=== PATIENT | female | born 1930 | race Caucasian/White ===

== ENCOUNTER 2017-09-10 17:55 | Emergency (ER) | payer MEDICARE, OTHER ==
[2017-09-10] MEDS ORDERED: MORPHINE SULFATE 10 MG/ML INJ IV ONE (18:49)
--- NOTE | 2017-09-10 18:52 | ER Document Report ---
ED Medical Screen (RME) - General Chief Complaint: Possible Kidney Stone Stated Complaint: CHEST PAIN, BACK PAIN Time Seen by Provider: 09/10/17 18:40 Mode of Arrival: Wheelchair Information source: Patient, Relative Notes: 87-year-old female history kidney stones presents with complaints of left flank pain, she admits to urinary symptoms I have greeted and performed a rapid initial assessment of this patient. A comprehensive ED assessment and evaluation of the patient, analysis of test results and completion of the medical decision making process will be conducted by additional ED providers. PHYSICAL EXAMINATION: GENERAL: Well-appearing, well-nourished and in mild distress HEAD: Atraumatic, normocephalic. EYES: Pupils equal round extraocular movements intact, conjunctiva are normal. ENT: Nares patent NECK: Normal range of motion LUNGS: No respiratory distress Musculoskeletal: Normal range of motion NEUROLOGICAL: Normal speech, normal gait. PSYCH: Normal mood, normal affect. SKIN: Warm, Dry, normal turgor, no rashes or lesions noted. TRAVEL OUTSIDE OF THE [place] IN LAST 30 DAYS: No - Related Data Allergies/Adverse Reactions: propoxyphene HCl [From Darvon] Allergy (Mild, Verified 09/10/17 17:58) FELT FUNNY Past Medical History - Social History Chew tobacco use (# tins/day): No Frequency of alcohol use: None Drug Abuse: None - Past Medical History Cardiac Medical History: Reports: Hx Hypercholesterolemia, Hx Hypertension Denies: Hx Atrial Fibrillation, Hx Congestive Heart Failure, Hx Coronary Artery Disease, Hx Heart Attack, Hx Peripheral Vascular Disease, Hx Heart Murmur Pulmonary Medical History: Denies: Hx Asthma, Hx Tuberculosis Neurological Medical History: Reports: Hx Cerebrovascular Accident - 2009. Denies: Hx Seizures Renal/ Medical History: Denies: Hx Peritoneal Dialysis Malignancy Medical History: Denies: Hx Leukemia GI Medical History: Reports: Hx Diverticulitis, Hx Gastroesophageal Reflux Disease, Hx Hiatal Hernia. Denies: Hx Crohn's Disease, Hx Hepatitis, Hx Irritable Bowel, Hx Liver Failure, Hx Pancreatitis, Hx Ulcer Musculoskeltal Medical History: Reports Hx Arthritis Infectious Medical History: Denies: Hx Hepatitis, Hx HIV Past Surgical History: Reports: Hx Bowel Surgery - Hemicolectomy for diverticulitis in 1979, Hx Tubal Ligation. Denies: Hx Section, Hx Cholecystectomy, Hx Colostomy, Hx Gastric Bypass Surgery, Hx Herniorrhaphy, Hx Mastectomy, Hx Open Heart Surgery, Hx Pacemaker, Hx Tonsillectomy Physical Exam - Vital signs Vitals: Temp Pulse Resp BP Pulse Ox 97.5 F 90 22 H 149/78 H 100 09/10/17 18:22 09/10/17 18:22 09/10/17 18:22 09/10/17 18:22 09/10/17 18:22 Course - Vital Signs Vital signs: Temp Pulse Resp BP Pulse Ox 97.5 F 90 22 H 149/78 H 100 09/10/17 18:22 09/10/17 18:22 09/10/17 18:22 09/10/17 18:22 09/10/17 18:22
[2017-09-10 19:40] LABS: APPEARANCE,URINE CLEAR; BILIRUBIN,URINE NEGATIVE (NEGATIVE); GLUCOSE, URINE NEGATIVE (NEGATIVE); KETONES,URINE NEGATIVE (NEGATIVE); LEUKOCYTE ESTERASE,URINE TRACE (NEGATIVE); NITRITE,URINE NEGATIVE (NEGATIVE); PROTEIN,URINE NEGATIVE (NEGATIVE); URINE SPECIFIC GRAVITY 1.023
[2017-09-10] MEDS ORDERED: ONDANSETRON HCL INJ/PF 4 MG/2 ML SDV IV ONE (19:44)
--- NOTE | 2017-09-10 19:47 | ER Document Report ---
ED GI/ - General Chief Complaint: Possible Kidney Stone Stated Complaint: CHEST PAIN, BACK PAIN Time Seen by Provider: 09/10/17 18:40 Mode of Arrival: Wheelchair Information source: Patient Notes: 87 years old female presents today with left flank pain particularly over the lower thoracic and upper lumbar paralumbar region, radiating to the front for nearly one day. She has a history of kidney stones, diverticulitis with partial wedge resection of the colon. Denies any fever chills or other constitutional symptoms. Her urine was dark but not having any dysuria frequency urgency. No hematuria. Denies any nausea vomiting abdominal pain diarrhea or constipation. TRAVEL OUTSIDE OF THE [place] IN LAST 30 DAYS: No - Related Data Allergies/Adverse Reactions: propoxyphene HCl [From Darvon] Allergy (Mild, Verified 09/10/17 17:58) FELT FUNNY Past Medical History - General Information source: Patient, Relative - Social History Smoking Status: Former Smoker Chew tobacco use (# tins/day): No Frequency of alcohol use: None Drug Abuse: None Family History: Reviewed & Not Pertinent Patient has suicidal ideation: No Patient has homicidal ideation: No - Past Medical History Cardiac Medical History: Reports: Hx Hypercholesterolemia, Hx Hypertension Denies: Hx Atrial Fibrillation, Hx Congestive Heart Failure, Hx Coronary Artery Disease, Hx Heart Attack, Hx Peripheral Vascular Disease, Hx Heart Murmur Pulmonary Medical History: Denies: Hx Asthma, Hx Tuberculosis Neurological Medical History: Reports: Hx Cerebrovascular Accident - 2008. Denies: Hx Seizures Renal/ Medical History: Denies: Hx Peritoneal Dialysis Malignancy Medical History: Denies: Hx Leukemia GI Medical History: Reports: Hx Diverticulitis, Hx Gastroesophageal Reflux Disease, Hx Hiatal Hernia. Denies: Hx Crohn's Disease, Hx Hepatitis, Hx Irritable Bowel, Hx Liver Failure, Hx Pancreatitis, Hx Ulcer Musculoskeltal Medical History: Reports Hx Arthritis Infectious Medical History: Denies: Hx Hepatitis, Hx HIV Past Surgical History: Reports: Hx Bowel Surgery - Hemicolectomy for diverticulitis in 1979, Hx Tubal Ligation. Denies: Hx Section, Hx Cholecystectomy, Hx Colostomy, Hx Gastric Bypass Surgery, Hx Herniorrhaphy, Hx Mastectomy, Hx Open Heart Surgery, Hx Pacemaker, Hx Tonsillectomy - Immunizations Hx Pneumococcal Vaccination: 09/17/08 Review of Systems - Review of Systems Notes: REVIEW OF SYSTEMS: CONSTITUTIONAL : Denies fever, chills, or sweats. Denies recent illness. EENT: Denies eye, ear, throat, or mouth pain or symptoms. Denies nasal or sinus congestion or discharge. Denies throat, tongue, or mouth swelling or difficulty swallowing. CARDIOVASCULAR: Denies chest pain. Denies palpitations or racing or irregular heart beat. Denies ankle edema. RESPIRATORY: Denies cough, cold, or chest congestion. Denies shortness of breath, difficulty breathing, or wheezing. GASTROINTESTINAL: Denies abdominal pain or distention. Denies nausea, vomiting , or diarrhea. Denies blood in vomitus, stools, or per rectum. Denies black, tarry stools. Denies constipation. GENITOURINARY: Denies difficulty urinating, painful urination, burning, frequency, blood in urine, or discharge. FEMALE GENITOURINARY: Denies vaginal bleeding, heavy or abnormal periods, irregular periods. Denies vaginal discharge or odor. MUSCULOSKELETAL: SKIN: Denies rash, lesions or sores. HEMATOLOGIC : Denies easy bruising or bleeding. LYMPHATIC: Denies swollen, enlarged glands. NEUROLOGICAL: Denies confusion or altered mental status. Denies passing out or loss of consciousness. Denies dizziness or lightheadedness. Denies headache. Denies weakness or paralysis or loss of use of either side. Denies problems with gait or speech. Denies sensory loss, numbness, or tingling. Denies seizures. PSYCHIATRIC: Denies anxiety or stress. Denies depression, suicidal ideation, or homicidal ideation. ALL OTHER SYSTEMS REVIEWED AND NEGATIVE. PHYSICAL EXAMINATION: GENERAL: Elderly female with kyphoscoliosis HEAD: Atraumatic, normocephalic. EYES: Pupils equal round and reactive to light, extraocular movements intact, conjunctiva are normal. ENT: Nares patent, oropharynx clear without exudates. Moist mucous membranes. NECK: Normal range of motion, supple without lymphadenopathy LUNGS: Breath sounds clear to auscultation bilaterally and equal. No wheezes rales or rhonchi. HEART: Regular rate and rhythm without murmurs ABDOMEN: Soft, nontender, nondistended abdomen. No guarding, no rebound. No masses appreciated. Female : deferred Musculoskeletal: Sharp tenderness over the paraspinal muscles of the lower T12 and L1-3 region was noted NEUROLOGICAL: Cranial nerves grossly intact. Normal speech, normal gait. Normal sensory, motor exams PSYCH: Normal mood, normal affect. SKIN: Warm, Dry, normal turgor, no rashes or lesions noted. Dictation was performed using [employer] voice recognition software Physical Exam - Vital signs Vitals: Temp Pulse Resp BP Pulse Ox 97.5 F 90 22 H 149/78 H 100 09/10/17 18:22 09/10/17 18:22 09/10/17 18:22 09/10/17 18:22 09/10/17 18:22 Course - Re-evaluation Re-evalutation: 09/11/17 00:36 She was given medications for nausea and pain. CT report was reviewed, and all the results were discussed with patient and the family. - Vital Signs Vital signs: Temp Pulse Resp BP Pulse Ox 97.6 F 90 17 161/89 H 94 09/10/17 22:05 09/10/17 18:22 09/11/17 00:01 09/11/17 00:01 09/11/17 00:01 - Laboratory Result Diagrams: 09/10/17 20:06 09/10/17 20:06 Laboratory results interpreted by me: 09/10/17 09/10/17 09/10/17 19:00 20:06 20:06 Seg Neutrophils % 81.7 H Carbon Dioxide 31 H Glucose 117 H Creatine Kinase 144 H Urine Urobilinogen 2.0 H Ur Leukocyte Esterase TRACE H - Diagnostic Test Radiology reviewed: Reports reviewed Radiology results interpreted by me: 09/11/17 00:37 CT chest abdomen and pelvis was reviewed the radiology report - EKG Interpretation by Co EKG shows normal: Sinus rhythm - At the rate of 65 bpm left axis, left ventricular hypertrophy by voltage, otherwise no acute changes noted. Discharge - Discharge Clinical Impression: Hiatal hernia Abdominal pain Qualifiers: Abdominal location: generalized Qualified Code(s): R10.84 - Generalized abdominal pain Retained feces Qualifiers: Constipation type: slow transit constipation Qualified Code(s): K59.01 - Slow transit constipation Lower back pain Qualifiers: Chronicity: acute Back pain laterality: left Sciatica presence: unspecified whether sciatica present Qualified Code(s): M54.5 - Low back pain Disposition: HOME, SELF-CARE Instructions: Abdominal Pain ([facility]), Bulk Laxatives Prescriptions: Lactulose 20 gm PO BID #120 ml Ondansetron [Zofran Odt 4 mg Tablet] 1 - 2 tab PO Q4H PRN #15 tab.rapdis PRN Reason: For Nausea/Vomiting
[2017-09-10 20:24] LABS: ABSOLUTE LYMPHOCYTES (AUTO) 0.9 10^3/uL (0.5-4.7); ABSOLUTE MONOCYTES (AUTO) 0.2 10^3/uL (0.1-1.4); ABSOLUTE NEUT (AUTO) 5.4 10^3/uL (1.7-8.2); BASOPHILS % (AUTO) 0.6 % (0-2); EOSINOPHILS % (AUTO) 0.3 % (0-6); LYMPHOCYTES % (AUTO) 13.7 % (13-45); MEAN CORPUSCULAR HGB CONC 34.2 g/dL (32.0-36.0); MEAN CORPUSCULAR VOLUME 94 fl (80-97); MONOCYTES % (AUTO) 3.7 % (3-13); RED BLOOD COUNT 4.39 10^6/uL (3.72-5.28); RED CELL DISTRIBUTION WIDTH 12.9 % (11.5-14.0); SEGMENTED NEUTROPHILS % (AUTO) 81.7 % (42-78); WHITE BLOOD COUNT 6.6 10^3/uL (4.0-10.5)
[2017-09-10 20:45] LABS: ALANINE AMINOTRANSFERASE 26 U/L (9-52); ALBUMIN 4.5 g/dL (3.5-5.0); ALKALINE PHOSPHATASE 86 U/L (38-126); ANION GAP 10 (5-19); ASPARTATE AMINO TRANSFERASE 28 U/L (14-36); BILIRUBIN,DIRECT 0.3 mg/dL (0.0-0.4); BILIRUBIN,TOTAL 0.5 mg/dL (0.2-1.3); BLOOD UREA NITROGEN 19 mg/dL (7-20); CALCIUM 10.2 mg/dL (8.4-10.2); CARBON DIOXIDE 31 mmol/L (22-30); CHLORIDE 103 mmol/L (98-107); CREATINE KINASE 144 U/L (30-135); GLUCOSE 117 mg/dL (75-110); POTASSIUM 4.4 mmol/L (3.6-5.0); SODIUM 143.6 mmol/L (137-145); TOTAL PROTEIN 7.6 g/dL (6.3-8.2)
[2017-09-10 20:55] LABS: CREATINE KINASE MB 2.27 ng/mL (<4.55)
[2017-09-10 20:57] LABS: TROPONIN I < 0.012 ng/mL
--- NOTE | 2017-09-10 22:18 | EKG REPORT ---
SEVERITY:- ABNORMAL ECG - SINUS RHYTHM LEFT AXIS DEVIATION PROBABLE LEFT VENTRICULAR HYPERTROPHY : Confirmed by: Vincent Esposito 10-Sep-2017 22:18:06
--- NOTE | 2017-09-10 23:24 | RADIOLOGY REPORT (SQ) ---
EXAM DESCRIPTION: CTA CHEST COMPLETED DATE/TIME: 09/10/2017 11:08 pm REASON FOR STUDY: left flank pain hx stones,EVAL aorta for discection, aneurysm COMPARISON: CT 2012 TECHNIQUE: CT scan of the chest performed using helical scanning technique with dynamic intravenous contrast injection. Images reviewed with lung, soft tissue and bone windows. Reconstructed coronal and sagittal MPR images reviewed. Additional 3 dimensional post-processing performed to develop Maximal Intensity Projection images (CT P). All images stored on PACS. All CT scanners at this facility use dose modulation, iterative reconstruction, and/or weight based d osing when appropriate to reduce radiation dose to as low as reasonably achievable (ALARA). [facility]: Dose Right [facility]: CareDose [facility]: Dose Right [facility]: Teradose 4D [facility]: [employer] CONTRAST TYPE AND DOSE: contrast/concentration: Isovue 370.00 mg/ml; Total Contrast Delivered: 92.0 ml; Total Saline Delivered: 53.0 ml Contrast bolus optimized for the pulmonary arteries. Not diagnostic for the aorta. RENAL FUNCTION: GFR > 60. RADIATION DOSE: . LIMITATIONS: Motion FINDINGS: LUNGS AND PLEURA: Mild chronic interstitial changes in the lungs. No pneumothorax. AORTA AND GREAT VESSELS: No aneurysm. Contrast bolus not optimized for the aorta. HEART: No pericardial effusion. No significant coronary artery calcifications. PULMONARY ARTERIES: No emboli visualized in the main pulmonary arteries or the segmental branches. HILAR AND MEDIASTINAL STRUCTURES: There is a massive hiatal hernia with essentially intrathoracic sto mach. The stomach measures 15 x 8.5 x 12 cm. No thickening of the gastric wall and no gas within th e wall the stomach. HARDWARE: None in the chest. UPPER ABDOMEN: See separate report of the CT of the abdomen. THYROID AND OTHER SOFT TISSUES: No masses. No adenopathy. BONES: Diffuse scoliosis. 3D MIPS: Confirm above findings. OTHER: No other significant finding. IMPRESSION: There is no evidence for pulmonary emboli. Contrast bolus not optimal for the aorta. Massive gastric dilatation with fluid/food content. The stomach is intrathoracic and reaches the lev el of the aortic arch. No thickening of the gastric wall. Possible organoaxial volvulus, however no t possible to determine because of the massive dilatation. COMMENT: Quality ID # [id number]: Final reports with documentation of one or more dose reduction techniques (e.g., Automated exposure control, adjustment of the mA and/or kV according to patient size, use of iterative reconstruction technique) TECHNICAL DOCUMENTATION: JOB ID: [id number] [employer]- All Rights Reserved
--- NOTE | 2017-09-10 23:31 | RADIOLOGY REPORT (SQ) ---
EXAM DESCRIPTION: CTA ABDOMEN; CTA PELVIS COMPLETED DATE/TIME: 09/10/2017 11:08 pm REASON FOR STUDY: left flank pain hx stones,EVAL aorta for discection, aneurysm COMPARISON: None. TECHNIQUE: CT scan of the abdominal aorta extending to the iliac bifurcation performed with and with out intravenous contrast using helical scanning technique with dynamic intravenous contrast injection . Images reviewed with lung, soft tissue, and bone windows. Reconstructed coronal and sagittal MPR im ages reviewed. All images stored on PACS. Advanced 3D imaging as volume rendering, MIPS, SSD performed? yes All CT scanners at this facility use dose modulation, iterative reconstruction, and/or weight based d osing when appropriate to reduce radiation dose to as low as reasonably achievable (ALARA). [facility]: Dose Right [facility]: CareDose [facility]: Dose Right [facility]: Teradose 4D [facility]: [employer] CONTRAST TYPE AND DOSE: 92 Isovue 370- low osmolar. RENAL FUNCTION: GFR > 60. LIMITATIONS: Minimal intra-arterial contrast FINDINGS: NON-CONTRASTED IMAGING: Gallstones. POST-CONTRAST IMAGING: AORTA AND VESSELS: There is no aneurysm. Cannot evaluate for dissection. LUNG BASES: No significant findings. No nodules or infiltrates. LIVER: Normal size. No masses or dilated ducts. SPLEEN: Normal size. No focal lesions. PANCREAS: No masses. No significant calcifications. No adjacent inflammation or peripancreatic fluid collections. Pancreatic duct not dilated. GALLBLADDER: No identified stones by CT criteria. No inflammatory changes to suggest cholecystitis. ADRENAL GLANDS: Gallstones. RIGHT KIDNEY AND URETER: No mass, calculi or urinary tract obstruction. LEFT KIDNEY AND URETER: No mass, calculi or urinary tract obstruction. RETROPERITONEUM: No retroperitoneal adenopathy, hemorrhage or masses. BOWEL AND PERITONEAL CAVITY: No masses or inflammatory changes. No free fluid or peritoneal masses. Diverticulosis. APPENDIX: Not visualized. ABDOMINAL WALL: No masses. No hernias. BONY STRUCTURES: No significant or acute findings. 3-D IMAGING: Not performed. OTHER: No other significant finding. IMPRESSION: There is no evidence for aneurysm. Cannot evaluate for dissection as there is limited c ontrast in the vascular tree. Diverticulosis. Gallstones. TECHNICAL DOCUMENTATION: JOB ID: [id number] Quality ID # [id number]: Final reports with documentation of one or more dose reduction techniques (e.g., Au tomated exposure control, adjustment of the mA and/or kV according to patient size, use of iterative reconstruction technique) 2010 [employer]- All Rights Reserved
--- NOTE | 2017-09-10 23:31 | RADIOLOGY REPORT (SQ) ---
EXAM DESCRIPTION: CTA ABDOMEN; CTA PELVIS COMPLETED DATE/TIME: 09/10/2017 11:08 pm REASON FOR STUDY: left flank pain hx stones,EVAL aorta for discection, aneurysm COMPARISON: None. TECHNIQUE: CT scan of the abdominal aorta extending to the iliac bifurcation performed with and with out intravenous contrast using helical scanning technique with dynamic intravenous contrast injection . Images reviewed with lung, soft tissue, and bone windows. Reconstructed coronal and sagittal MPR im ages reviewed. All images stored on PACS. Advanced 3D imaging as volume rendering, MIPS, SSD performed? yes All CT scanners at this facility use dose modulation, iterative reconstruction, and/or weight based d osing when appropriate to reduce radiation dose to as low as reasonably achievable (ALARA). [facility]: Dose Right [facility]: CareDose [facility]: Dose Right [facility]: Teradose 4D [facility]: [employer] CONTRAST TYPE AND DOSE: 92 Isovue 370- low osmolar. RENAL FUNCTION: GFR > 60. LIMITATIONS: Minimal intra-arterial contrast FINDINGS: NON-CONTRASTED IMAGING: Gallstones. POST-CONTRAST IMAGING: AORTA AND VESSELS: There is no aneurysm. Cannot evaluate for dissection. LUNG BASES: No significant findings. No nodules or infiltrates. LIVER: Normal size. No masses or dilated ducts. SPLEEN: Normal size. No focal lesions. PANCREAS: No masses. No significant calcifications. No adjacent inflammation or peripancreatic fluid collections. Pancreatic duct not dilated. GALLBLADDER: No identified stones by CT criteria. No inflammatory changes to suggest cholecystitis. ADRENAL GLANDS: Gallstones. RIGHT KIDNEY AND URETER: No mass, calculi or urinary tract obstruction. LEFT KIDNEY AND URETER: No mass, calculi or urinary tract obstruction. RETROPERITONEUM: No retroperitoneal adenopathy, hemorrhage or masses. BOWEL AND PERITONEAL CAVITY: No masses or inflammatory changes. No free fluid or peritoneal masses. Diverticulosis. APPENDIX: Not visualized. ABDOMINAL WALL: No masses. No hernias. BONY STRUCTURES: No significant or acute findings. 3-D IMAGING: Not performed. OTHER: No other significant finding. IMPRESSION: There is no evidence for aneurysm. Cannot evaluate for dissection as there is limited c ontrast in the vascular tree. Diverticulosis. Gallstones. TECHNICAL DOCUMENTATION: JOB ID: [id number] Quality ID # [id number]: Final reports with documentation of one or more dose reduction techniques (e.g., Au tomated exposure control, adjustment of the mA and/or kV according to patient size, use of iterative reconstruction technique) 2010 [employer]- All Rights Reserved
[2017-09-10] MEDS ORDERED: PROMETHAZINE HCL INJ 50 MG/1 ML VIAL IM PRN (23:50)
[2017-09-10] MEDS ORDERED: PROMETHAZINE HCL INJ 25 MG/1 ML VIAL ONE (23:59)
[2017-09-11] MEDS ORDERED: PROMETHAZINE HCL INJ 25 MG/1 ML VIAL IM ONE
[2017-09-11] MEDS ORDERED: LACTULOSE SYRUP 20 GM/30 ML UDCUP PO ONE (00:54)
[2017-09-11 01:09] VITALS: BP 165/89
== END 2017-09-11 01:05 | disposition home or self-care (01) ==
LOC: ER 17:55
DX: K59.01 Slow transit constipation (principal); K44.9 Diaphragmatic hernia without obstruction or gangrene; R10.84 Generalized abdominal pain; M54.6 Pain in thoracic spine; M54.5 Low back pain; R39.89 Other symptoms and signs involving the genitourinary system; I51.7 Cardiomegaly; I10 Essential (primary) hypertension; Z87.442 Personal history of urinary calculi; Z87.19 Personal history of other diseases of the digestive system; Z90.49 Acquired absence of other specified parts of digestive tract; Z88.5 Allergy status to narcotic agent; Z87.891 Personal history of nicotine dependence
CPT/HCPCS: 93005; 99284; 96372; 96374; 96375; 36415; 82553; 82550; 85025; 80053; 81001; 84484; 71275; 74175; 72191; 93010; A9270; J2270; J2550; J2405

== ENCOUNTER 2018-04-10 14:14 | Inpatient (IN) | payer MEDICARE, OTHER, MEDICAID ==
--- NOTE | 2018-04-10 14:40 | ER Document Report ---
ED GI/ - General Chief Complaint: Abdominal Pain Stated Complaint: ABDOMINAL PAIN Time Seen by Provider: 04/10/18 14:40 Mode of Arrival: Ambulatory Information source: Patient Notes: Patient is an 88-year-old female who presents to the ER today for abdominal pain , nausea and vomiting that started yesterday and patient has a history of diverticulitis and thinks that that may be what this is. She states she has had a partial colectomy years ago for diverticulitis. She states her last bowel movement was either last night or this morning and normal. She denies any diarrhea. She denies any fevers or chills. She states "I think it is the cabbage I ate yesterday at [employer] aggravating my diverticulitis." TRAVEL OUTSIDE OF THE [place] IN LAST 30 DAYS: No - Related Data Allergies/Adverse Reactions: propoxyphene HCl [From Darvon] Allergy (Mild, Verified 09/10/17 17:58) FELT FUNNY Past Medical History - General Information source: Patient - Social History Smoking Status: Never Smoker Chew tobacco use (# tins/day): No Frequency of alcohol use: None Drug Abuse: None Family History: Reviewed & Not Pertinent Patient has suicidal ideation: No Patient has homicidal ideation: No - Past Medical History Cardiac Medical History: Reports: Hx Hypercholesterolemia, Hx Hypertension Denies: Hx Atrial Fibrillation, Hx Congestive Heart Failure, Hx Coronary Artery Disease, Hx Heart Attack, Hx Peripheral Vascular Disease, Hx Heart Murmur Pulmonary Medical History: Denies: Hx Asthma, Hx Tuberculosis Neurological Medical History: Reports: Hx Cerebrovascular Accident - 2009. Denies: Hx Seizures Renal/ Medical History: Denies: Hx Peritoneal Dialysis Malignancy Medical History: Denies: Hx Leukemia GI Medical History: Reports: Hx Diverticulitis, Hx Gastroesophageal Reflux Disease, Hx Hiatal Hernia. Denies: Hx Crohn's Disease, Hx Hepatitis, Hx Irritable Bowel, Hx Liver Failure, Hx Pancreatitis, Hx Ulcer Musculoskeletal Medical History: Reports Hx Arthritis Infectious Medical History: Denies: Hx Hepatitis, Hx HIV Past Surgical History: Reports: Hx Bowel Surgery - Hemicolectomy for diverticulitis in 1979, Hx Tubal Ligation. Denies: Hx Section, Hx Cholecystectomy, Hx Colostomy, Hx Gastric Bypass Surgery, Hx Herniorrhaphy, Hx Mastectomy, Hx Open Heart Surgery, Hx Pacemaker, Hx Tonsillectomy - Immunizations Hx Pneumococcal Vaccination: 09/17/08 Review of Systems - Review of Systems Constitutional: No symptoms reported EENT: No symptoms reported Cardiovascular: No symptoms reported Respiratory: No symptoms reported Gastrointestinal: See HPI Genitourinary: No symptoms reported Female Genitourinary: No symptoms reported Musculoskeletal: No symptoms reported Skin: No symptoms reported Hematologic/Lymphatic: No symptoms reported Neurological/Psychological: No symptoms reported Physical Exam - Vital signs Vitals: Temp Pulse Resp BP Pulse Ox 99.1 F 82 16 113/91 H 95 04/10/18 14:23 04/10/18 14:23 04/10/18 14:23 04/10/18 14:23 04/10/18 14:23 - Notes Notes: PHYSICAL EXAMINATION: GENERAL: Uncomfortable appearing, but in no acute distress. HEAD: Atraumatic, normocephalic. EYES: Pupils equal round and reactive to light, extraocular movements intact, sclera anicteric, conjunctiva are normal. NECK: Normal range of motion, supple without lymphadenopathy LUNGS: CTAB and equal. No wheezes rales or rhonchi. HEART: Regular rate and rhythm without murmurs ABDOMEN: Soft, epigastric tenderness only. No guarding, no rebound BACK: no vertebral tenderness, normal ROM GI/: no CVA tenderness EXTREMITIES: Normal range of motion, no pitting edema. No cyanosis. NEUROLOGICAL: Cranial nerves grossly intact. Normal sensory/motor exams. PSYCH: Normal mood, normal affect. SKIN: Warm, Dry, normal turgor, no rashes or lesions noted Course - Re-evaluation Re-evalutation: 04/10/18 17:38 Patient has a mildly elevated white blood cell count 12.2, patient has a small bowel obstruction on CAT scan today with IV contrast. Patient has no sign of diverticulitis today on CAT scan. I did suspect this clinically as patient only had epigastric tenderness. Dr. Goetz, surgeon on-call was consulted and will come evaluate as soon as he is out of the OR with a case. - Vital Signs Vital signs: Temp Pulse Resp BP Pulse Ox 99.1 F 82 16 113/91 H 95 04/10/18 14:23 04/10/18 14:23 04/10/18 14:23 04/10/18 14:23 04/10/18 14:23 - Laboratory Result Diagrams: 04/10/18 15:10 07/25/18 15:10 Laboratory results interpreted by me: 04/10/18 04/10/18 15:10 15:10 WBC 12.2 H Seg Neutrophils % 83.2 H Lymphocytes % 9.7 L Absolute Neutrophils 10.2 H Potassium 5.1 H Glucose 119 H Discharge - Discharge Clinical Impression: SBO (small bowel obstruction) Condition: Stable Disposition: ADMITTED INPATIENT Admitting Provider: Surgicalist Unit Admitted: Surgical Floor Referrals: MARA SPENCE MD [Primary Care Provider] - Follow up as needed
[2018-04-10] MEDS ORDERED: NORMAL SALINE 1000 ML 1,000 ML IV ONE (14:56)
[2018-04-10] MEDS ORDERED: METOCLOPRAMIDE HCL INJ/PF 10 MG/2 ML SDV IV ONE (14:56)
[2018-04-10] MEDS ORDERED: MORPHINE SULFATE 10 MG/ML INJ IV ONE (14:56)
[2018-04-10 15:36] LABS: ABSOLUTE BASOPHILS # (AUTO) 0.1 10^3/uL (0.0-0.2); ABSOLUTE LYMPHOCYTES (AUTO) 1.2 10^3/uL (0.5-4.7); ABSOLUTE MONOCYTES (AUTO) 0.8 10^3/uL (0.1-1.4); ABSOLUTE NEUT (AUTO) 10.2 10^3/uL (1.7-8.2); BASOPHILS % (AUTO) 0.4 % (0-2); EOSINOPHILS % (AUTO) 0.1 % (0-6); HEMATOCRIT 43.8 % (36.0-47.0); HEMOGLOBIN 14.5 g/dL (12.0-15.5); LYMPHOCYTES % (AUTO) 9.7 % (13-45); MEAN CORPUSCULAR HEMOGLOBIN 31.2 pg (27.0-33.4); MEAN CORPUSCULAR VOLUME 95 fl (80-97); MONOCYTES % (AUTO) 6.6 % (3-13); PLATELET COUNT 276 10^3/uL (150-450); RED BLOOD COUNT 4.63 10^6/uL (3.72-5.28); RED CELL DISTRIBUTION WIDTH 13.7 % (11.5-14.0); SEGMENTED NEUTROPHILS % (AUTO) 83.2 % (42-78); TOTAL CELLS COUNTED % (AUTO) 100 %; WHITE BLOOD COUNT 12.2 10^3/uL (4.0-10.5)
[2018-04-10 15:59] LABS: ALANINE AMINOTRANSFERASE 20 U/L (9-52); ALBUMIN 4.1 g/dL (3.5-5.0); ALKALINE PHOSPHATASE 75 U/L (38-126); ANION GAP 10 (5-19); ASPARTATE AMINO TRANSFERASE 28 U/L (14-36); BILIRUBIN,DIRECT 0.3 mg/dL (0.0-0.4); BILIRUBIN,TOTAL 0.9 mg/dL (0.2-1.3); BLOOD UREA NITROGEN 18 mg/dL (7-20); CALCIUM 9.8 mg/dL (8.4-10.2); CARBON DIOXIDE 30 mmol/L (22-30); CHLORIDE 100 mmol/L (98-107); GLUCOSE 119 mg/dL (75-110); POTASSIUM 5.1 mmol/L (3.6-5.0); SODIUM 139.6 mmol/L (137-145); TOTAL PROTEIN 7.2 g/dL (6.3-8.2)
--- NOTE | 2018-04-10 16:46 | RADIOLOGY REPORT (SQ) ---
EXAM DESCRIPTION: CT ABD/PELVIS WITH IV ONLY COMPLETED DATE/TIME: 04/10/2018 4:33 pm REASON FOR STUDY: epigastric and llq pain COMPARISON: None. TECHNIQUE: CT scan of the abdomen and pelvis performed using helical scanning technique with dynamic intravenous contrast injection. No oral contrast. Images reviewed with lung, soft tissue, and bone windows. Reconstructed coronal and sagittal MPR images reviewed. Delayed images for evaluation of the urinary system also acquired. All images stored on PACS. All CT scanners at this facility use dose modulation, iterative reconstruction, and/or weight based d osing when appropriate to reduce radiation dose to as low as reasonably achievable (ALARA). [facility]: Dose Right [facility]: CareDose [facility]: Dose Right [facility]: Teradose 4D [facility]: [employer] [place] [employer] [place] CONTRAST TYPE AND DOSE: contrast/concentration: Isovue 370.00 mg/ml; Total Contrast Delivered: 52.0 ml; Total Saline Delivered: 50.0 ml RENAL FUNCTION: Creatinine 0.76 RADIATION DOSE: CT Rad equipment meets quality standard of care and radiation dose reduction techniq ues were employed. CTDIvol: 4.8 - 5.4 mGy. DLP: 505 mGy-cm.. LIMITATIONS: None. FINDINGS: LOWER CHEST: Large hiatal hernia is identified with an almost complete intrathoracic stoma ch. LIVER: Normal size. No masses. No dilated ducts. SPLEEN: Normal size. No focal lesions. PANCREAS: No masses. No significant calcifications. No adjacent inflammation or peripancreatic fluid collections. Pancreatic duct not dilated. GALLBLADDER: Small calcified gallstones are identified. No inflammatory changes to suggest cholecysti tis. ADRENAL GLANDS: No significant masses or asymmetry. RIGHT KIDNEY AND URETER: No solid masses. No significant calcifications. No hydronephrosis or hyd roureter. LEFT KIDNEY AND URETER: No solid masses. No significant calcifications. No hydronephrosis or hydr oureter. AORTA AND VESSELS: No aneurysm. No dissection. Renal arteries, SMA, celiac without stenosis. RETROPERITONEUM: No retroperitoneal adenopathy, hemorrhage or masses. BOWEL AND PERITONEAL CAVITY: Multiple air and fluid distended small bowel loops are identified consis tent with a small bowel obstruction. There are more normal caliber distal small bowel loops without a definite transition point being identified. APPENDIX: Not identified PELVIS: No mass. No free fluid. Normal bladder. ABDOMINAL WALL: No masses. No hernias. BONES: There is a lumbar scoliosis convex to the right with extensive degenerative changes P OTHER: No other significant finding. IMPRESSION: Findings consistent with a small bowel obstruction without a definite transition point b eing identified. Small calcified gallstones are identified. Other findings as noted above TECHNICAL DOCUMENTATION: JOB ID: [id number] Quality ID # [id number]: Final reports with documentation of one or more dose reduction techniques (e.g., Au tomated exposure control, adjustment of the mA and/or kV according to patient size, use of iterative reconstruction technique) 2010 [employer]- All Rights Reserved Reading location - IP/workstation name: [email or web address]
[2018-04-10 17:37] LABS: APPEARANCE,URINE SLIGHTLY-CLOUDY; BILIRUBIN,URINE NEGATIVE (NEGATIVE); COLOR,URINE YELLOW; GLUCOSE, URINE NEGATIVE (NEGATIVE); KETONES,URINE NEGATIVE (NEGATIVE); LEUKOCYTE ESTERASE,URINE SMALL (NEGATIVE); NITRITE,URINE NEGATIVE (NEGATIVE); PROTEIN,URINE NEGATIVE (NEGATIVE); URINE SPECIFIC GRAVITY 1.034; UROBILINOGEN,URINE NEGATIVE mg/dL (<2.0)
[2018-04-10] MEDS ORDERED: DEXTROSE 50%-WATER 25 GM/50 ML DISP.SYRIN IV PRN ×2 (21:36)
[2018-04-10] MEDS ORDERED: ONDANSETRON HCL INJ/PF 4 MG/2 ML SDV IV PRN (21:36)
[2018-04-10] MEDS ORDERED: POTASSI CL 20 MEQ/D5-1/2NS 1L 1,000 ML IV PRN (21:36)
[2018-04-10] MEDS ORDERED: GLUCAGON,HUMAN RECOMB 1 MG INJ SUBCUT PRN (21:36)
[2018-04-10] MEDS ORDERED: DEXTROSE 40% GEL 15 GM TUBE PO PRN ×2 (21:36)
[2018-04-10] MEDS ORDERED: MORPHINE SULFATE 10 MG/ML INJ IV PRN (21:36)
[2018-04-10] MEDS ORDERED: PHENOL/SODIUM PHENOLATE 100 SPRAY/177 ML BOTTLE PO PRN (21:42)
[2018-04-10] MEDS ORDERED: PHARMACY COMMUNICATION ORDER MC NR (21:45)
--- NOTE | 2018-04-10 22:31 | PDOC H&P ---
History of Present Illness Admission Date/PCP: 04/10/18 17:48 MARA SPENCE MD Patient complains of: Nausea, vomiting, abdominal pain. History of Present Illness: HERMELINDA SALAS is an 88 year old female with a one-day history of abdominal swelling and pain. Her pain is sharp and stabbing. It does not radiate. She reports the pain is located in bilateral lower quadrants. Nothing makes her pain better. Movement and palpation make her pain worse. Patient has experienced multiple episodes of nausea and vomiting. The patient denies any fevers, chills, chest pain, shortness of breath, orthostasis, dizziness, headaches, blurry vision, fatigue, malaise, melena, hematochezia, or hematemesis. Past Medical History Cardiac Medical History: Reports: Hyperlipidema, Hypertension Denies: Atrial Fibrillation, Congestive Heart Failure, Coronary Artery Disease, Myocardial Infarction, Peripheral Vascular Disease, Heart Murmur Pulmonary Medical History: Denies: Asthma, Tuberculosis Neurological Medical History: Denies: Seizures Malignancy Medical History: Denies: Leukemia GI Medical History: Reports: Diverticulitis, Gastroesophageal Reflux Disease, Hiatal Hernia Denies: Crohn's Disease, Hepatitis Musculoskeltal Medical History: Reports: Arthritis Hematology: Reports: Anemia Denies: Hemophilia, Sickle Cell Disease Infectious Medical History: Denies: HIV Past Surgical History Past Surgical History: Reports: Tubal Ligation, Other - Cataract surgery. Partial colectomy. Denies: Amputation, Section, Cholecystectomy, Colostomy, Gastric Bypass Surgery, Herniorrhaphy, Mastectomy, Pacemaker, Tonsillectomy Social History Smoking Status: Never Smoker Frequency of Alcohol Use: None Hx Recreational Drug Use: No Hx Prescription Drug Abuse: No Family History Family History: Reviewed & Not Pertinent Parental Family History Reviewed: Yes Children Family History Reviewed: Yes Sibling(s) Family History Reviewed.: Yes Medication/Allergy Home Medications: Lovastatin [Mevacor] 20 mg PO QHS 04/10/18 Omeprazole 20 mg PO DAILY 04/10/18 Allergies/Adverse Reactions: propoxyphene HCl [From Darvon] Allergy (Mild, Verified 09/10/17 17:58) FELT FUNNY Review of Systems Constitutional: ABSENT: chills, fatigue, fever(s) Eyes: ABSENT: visual disturbances Ears: ABSENT: hearing changes Nose, Mouth, and Throat: ABSENT: sore throat Cardiovascular: ABSENT: chest pain, edema, palpitations Respiratory: ABSENT: dyspnea Gastrointestinal: PRESENT: abdominal pain, bloating, nausea, vomiting. ABSENT: hematemesis, hematochezia, melena Genitourinary: ABSENT: dysuria Musculoskeletal: ABSENT: back pain Integumentary: ABSENT: pruritus, rash Neurological: ABSENT: abnormal speech, confusion, dizziness, tremor(s), weakness Psychiatric: ABSENT: anxiety, depression Endocrine: ABSENT: cold intolerance, heat intolerance Hematologic/Lymphatic: ABSENT: easy bleeding, easy bruising Physical Exam Vital Signs: Temp Pulse Resp BP Pulse Ox 98.8 F 71 16 127/51 H 95 04/10/18 19:03 04/10/18 19:03 04/10/18 14:23 04/10/18 19:03 04/10/18 19:03 General appearance: PRESENT: no acute distress Head exam: PRESENT: atraumatic, normocephalic Eye exam: PRESENT: EOMI, PERRLA. ABSENT: scleral icterus Mouth exam: PRESENT: moist, neck supple Neck exam: ABSENT: lymphadenopathy, meningismus, tenderness, thyromegaly, tracheal deviation Respiratory exam: PRESENT: clear to auscultation nathan, unlabored. ABSENT: chest wall tenderness, wheezes Cardiovascular exam: PRESENT: RRR Pulses: PRESENT: normal radial pulses Vascular exam: PRESENT: normal capillary refill. ABSENT: pallor GI/Abdominal exam: PRESENT: distended, firm, tenderness - Mild Rectal exam: PRESENT: deferred Extremities exam: ABSENT: clubbing Neurological exam: PRESENT: alert, awake, oriented to person, oriented to place , oriented to time, oriented to situation, CN II-XII grossly intact. ABSENT: motor sensory deficit Psychiatric exam: ABSENT: agitated, anxious, depressed Focused psych exam: ABSENT: delusional Skin exam: ABSENT: cyanosis, erythema, jaundice, pallor Results Impressions: Abdomen/Pelvis CT 04/10/18 14:56 IMPRESSION: Findings consistent with a small bowel obstruction without a definite transition point being identified. Small calcified gallstones are identified. Other findings as noted above Assessment & Plan - Diagnosis (1) SBO (small bowel obstruction) Is this a current diagnosis for this admission?: Yes - Inpatient Certification Medical Necessity: Need For IV Fluids, Need for Pain Control, Need for Surgery - Plan Summary Plan Summary: This is an 88-year-old female with a history of abdominal pain, nausea, and vomiting. The patient believes she is having a "diverticulitis flareup". CT scan was performed, showing a small bowel obstruction. I have recommended hospital admission. I will insert an NG tube, and initiate conservative therapy. Hopefully her small bowel obstruction will subside in the next 48-72 hours. If the small bowel obstruction does not resolve, she may require surgical intervention. Further recommendations will be determined by the patient's clinical course.
[2018-04-10] MEDS ORDERED: DEXTROSE 5%-1/2 NORMAL SALINE 1,000 ML IV PRN (23:09)
[2018-04-11] MEDS ORDERED: PHENOL/SODIUM PHENOLATE 100 SPRAY/177 ML BOTTLE ONE (00:02)
--- NOTE | 2018-04-11 02:07 | RADIOLOGY REPORT (SQ) ---
EXAM DESCRIPTION: XR CHEST 1 VIEW COMPLETED DATE/TME: 04/11/2018 06:00 CLINICAL HISTORY: SOB, NG TUBE PLACEMENT COMPARISON: None. FINDINGS: Single frontal view of the chest. Atherosclerotic calcification aortic arch. Heart is not enlarged. No consolidation, pneumothorax, or pleural effusion. No displaced rib fractures identified. NG tube likely within and hiatal hernia. Dilated loops of small bowel partially visualized. IMPRESSION: 1. NG tube likely curled within an hiatal hernia.
[2018-04-11 07:11] LABS: ABSOLUTE EOSINOPHILS # (AUTO) 0.1 10^3/uL (0.0-0.6); ABSOLUTE MONOCYTES (AUTO) 0.8 10^3/uL (0.1-1.4); ABSOLUTE NEUT (AUTO) 8.6 10^3/uL (1.7-8.2); BASOPHILS % (AUTO) 0.2 % (0-2); EOSINOPHILS % (AUTO) 0.5 % (0-6); HEMATOCRIT 38.5 % (36.0-47.0); HEMOGLOBIN 12.9 g/dL (12.0-15.5); LYMPHOCYTES % (AUTO) 9.9 % (13-45); MEAN CORPUSCULAR HEMOGLOBIN 31.8 pg (27.0-33.4); MEAN CORPUSCULAR HGB CONC 33.5 g/dL (32.0-36.0); MEAN CORPUSCULAR VOLUME 95 fl (80-97); MONOCYTES % (AUTO) 8.1 % (3-13); PLATELET COUNT 203 10^3/uL (150-450); RED BLOOD COUNT 4.04 10^6/uL (3.72-5.28); RED CELL DISTRIBUTION WIDTH 13.3 % (11.5-14.0); SEGMENTED NEUTROPHILS % (AUTO) 81.3 % (42-78); TOTAL CELLS COUNTED % (AUTO) 100 %; WHITE BLOOD COUNT 10.5 10^3/uL (4.0-10.5)
[2018-04-11 07:23] LABS: ANION GAP 9 (5-19); BLOOD UREA NITROGEN 17 mg/dL (7-20); CALCIUM 8.7 mg/dL (8.4-10.2); CARBON DIOXIDE 25 mmol/L (22-30); CHLORIDE 104 mmol/L (98-107); GLUCOSE 109 mg/dL (75-110); POTASSIUM 4.8 mmol/L (3.6-5.0); SODIUM 138.3 mmol/L (137-145)
--- NOTE | 2018-04-11 08:25 | RADIOLOGY REPORT (SQ) ---
EXAM DESCRIPTION: KUB/ABDOMEN (SINGLE VIEW) COMPLETED DATE/TIME: 04/10/2018 10:47 pm REASON FOR STUDY: Check Placement of NG Tube COMPARISON: Sign NUMBER OF VIEWS: One view. TECHNIQUE: Supine radiographic image of the chest and abdomen acquired. LIMITATIONS: None. FINDINGS: BOWEL GAS PATTERN: Very large hiatal hernia with intrathoracic stomach. A few gas-filled loops of bowel in the abdomen. CALCIFICATIONS: No suspicious calcifications. SOFT TISSUES: No gross mass or suggestion of organomegaly. HARDWARE: Nasogastric tube with the tip in the stomach. BONES: No acute fracture. Degenerative changes in the spine. No worrisome bone lesions. OTHER: No other significant finding. IMPRESSION: VERY LARGE HIATAL HERNIA WITH INTRATHORACIC STOMACH. TIP OF THE NASOGASTRIC TUBE IS IN THE STOMACH. TECHNICAL DOCUMENTATION: JOB ID: [id number] [employer]- All Rights Reserved Reading location - IP/workstation name: [email or web address]
[2018-04-11] MEDS: ENOXAPARIN SODIUM INJ 30 MG/0.3 ML DISP.SYRIN SUBCUT SCH (09:45)
--- NOTE | 2018-04-11 13:01 | PDOC PROGRESS REPORT ---
Subjective Progress Note for:: 04/11/18 Subjective:: Feels much better. Had bowel movements this morning. Denies any abdominal pain. Patient was noted with traumatic NG tube insertion yesterday with multiple attempts. She was noted with small amounts of blood coming out through the NG tube today. Reason For Visit: SMALL BOWEL OBSTRUCTION Physical Exam Vital Signs: Temp Pulse Resp BP Pulse Ox 97.5 F 64 13 111/54 L 98 04/11/18 08:06 04/11/18 08:06 04/11/18 08:06 04/11/18 08:06 04/11/18 08:06 Intake & Output 04/10/18 04/11/18 04/12/18 06:59 06:59 06:59 Output Total 200 Balance -200 Weight 40.2 kg General appearance: PRESENT: no acute distress, cooperative Respiratory exam: PRESENT: clear to auscultation nathan Cardiovascular exam: PRESENT: RRR GI/Abdominal exam: PRESENT: other - Soft, nondistended, nontender to palpation. NG tube output appears blood-tinged. Canister has some fluid mixed with fresh blood earlier today. Results Laboratory Results: 04/11/18 06:20 04/11/18 06:20 04/11/18 04/11/18 06:20 06:20 WBC 10.5 RBC 4.04 Hgb 12.9 Hct 38.5 MCV 95 MCH 31.8 MCHC 33.5 RDW 13.3 Plt Count 203 Seg Neutrophils % 81.3 H Lymphocytes % 9.9 L Monocytes % 8.1 Eosinophils % 0.5 Basophils % 0.2 Absolute Neutrophils 8.6 H Absolute Lymphocytes 1.0 Absolute Monocytes 0.8 Absolute Eosinophils 0.1 Absolute Basophils 0.0 Sodium 138.3 Potassium 4.8 Chloride 104 Carbon Dioxide 25 Anion Gap 9 BUN 17 Creatinine 0.82 Est GFR ( Amer) > 60 Est GFR (Non-Af Amer) > 60 Glucose 109 Calcium 8.7 Impressions: Abdomen/Pelvis CT 04/10/18 14:56 IMPRESSION: Findings consistent with a small bowel obstruction without a definite transition point being identified. Small calcified gallstones are identified. Other findings as noted above KUB X-Ray 04/10/18 21:42 IMPRESSION: VERY LARGE HIATAL HERNIA WITH INTRATHORACIC STOMACH. TIP OF THE NASOGASTRIC TUBE IS IN THE STOMACH. Chest X-Ray 04/11/18 06:00 IMPRESSION: 1. NG tube likely curled within an hiatal hernia. Assessment & Plan - Diagnosis (1) SBO (small bowel obstruction) Is this a current diagnosis for this admission?: Yes Plan: Appears to have resolved. Will check x-ray prior to pulling out her NG tube since we have such a hard time getting it down. I suspect the blood per NG tube is secondary to the multiple attempts at the NG tube placement yesterday with some irritation. Will place her on proton pump inhibitor. Check laboratory studies. Will reevaluate later today if things look pretty good will DC NG tube at that point and start her on a diet.
[2018-04-11 13:24] LABS: HEMATOCRIT 39.9 % (36.0-47.0); HEMOGLOBIN 13.4 g/dL (12.0-15.5); MEAN CORPUSCULAR HEMOGLOBIN 31.7 pg (27.0-33.4); MEAN CORPUSCULAR HGB CONC 33.6 g/dL (32.0-36.0); MEAN CORPUSCULAR VOLUME 94 fl (80-97); PLATELET COUNT 217 10^3/uL (150-450); RED BLOOD COUNT 4.23 10^6/uL (3.72-5.28); RED CELL DISTRIBUTION WIDTH 13.3 % (11.5-14.0); WHITE BLOOD COUNT 7.8 10^3/uL (4.0-10.5)
--- NOTE | 2018-04-11 13:26 | RADIOLOGY REPORT (SQ) ---
EXAM DESCRIPTION: ABDOMEN 2 VIEWS COMPLETED DATE/TIME: 04/11/2018 1:12 pm REASON FOR STUDY: SBO, NG TUBE USED FOR DECOMRESSION OF HIATAL HERNIA, COMPARE TO PREVIOUS COMPARISON: 04/10/2018. NUMBER OF VIEWS: Two views. TECHNIQUE: Supine and erect/decubitus radiographic images of the abdomen acquired. LIMITATIONS: None. FINDINGS: FREE AIR: Interval decrease in size of the distended hiatal hernia. No significant dilate d bowel loops. LUNG BASES: Clear. BOWEL GAS PATTERN: Nonobstructive pattern. No dilated loops or air fluid levels. CALCIFICATIONS: No suspicious calcifications. SOFT TISSUES: No gross mass or suggestion of organomegaly. HARDWARE: Nasogastric tube in the intrathoracic stomach. BONES: No acute fracture. Degenerative changes in the spine. No worrisome bone lesions. OTHER: No other significant finding. IMPRESSION: HIATAL HERNIA WITH INTERVAL DECREASE IN THE GASEOUS DISTENTION. NO SIGNIFICANT DILATED BOWEL LOOPS. TECHNICAL DOCUMENTATION: JOB ID: [id number] [employer]- All Rights Reserved Reading location - IP/workstation name: [email or web address]
[2018-04-11 13:41] LABS: ANION GAP 9 (5-19); BLOOD UREA NITROGEN 16 mg/dL (7-20); CALCIUM 8.8 mg/dL (8.4-10.2); CARBON DIOXIDE 27 mmol/L (22-30); CHLORIDE 104 mmol/L (98-107); GLUCOSE 91 mg/dL (75-110); POTASSIUM 4.3 mmol/L (3.6-5.0); SODIUM 140.1 mmol/L (137-145)
[2018-04-11] MEDS ORDERED: HYDRALAZINE HCL INJ/PF 20 MG/1 ML SDV IV PRN (14:45)
--- NOTE | 2018-04-11 14:47 | PDOC CONSULTATION ---
Consultation Consult Date: 04/11/18 Attending physician:: QIANA BLANDON Consult reason:: Medical Managment History of Present Illness Admission Date/PCP: 04/10/18 17:48 MARA SPENCE MD Patient complains of: Nausea and vomiting with abdominal pain History of Present Illness: Per H&P by Dr. Goetz: HERMELINDA SALAS is a 88 year old female with a one-day history of abdominal swelling and pain. Her pain is sharp and stabbing. It does not radiate. She reports the pain is located in bilateral lower quadrants. Nothing makes her pain better. Movement and palpation make her pain worse. Patient has experienced multiple episodes of nausea and vomiting. The patient denies any fevers, chills, chest pain, shortness of breath, orthostasis, dizziness, headaches, blurry vision, fatigue, malaise, melena, hematochezia, or hematemesis. The patient was seen on afternoon rounds with her daughter present. HPI as above is confirmed. The patient denies abdominal pain at present. She currently has an NG tube to suction; draining dark brown/bloody fluid. She denies nausea at this time. She does report that she has had 2 bowel movements today and is passing gas; overall, she feels improved from yesterday. She denies fever, chills, chest pain, palpitations, dyspnea, orthopnea, abdominal pain, nausea and vomiting. Past Medical History Cardiac Medical History: Reports: Hyperlipidema, Hypertension Denies: Atrial Fibrillation, Congestive Heart Failure, Coronary Artery Disease, Myocardial Infarction, Peripheral Vascular Disease, Heart Murmur Pulmonary Medical History: Denies: Asthma, Chronic Obstructive Pulmonary Disease (COPD), Tuberculosis Neurological Medical History: Reports: Ischemic CVA Denies: Seizures Endocrine Medical History: Reports: None Renal/ Medical History: Reports: None Malignancy Medical History: Denies: Leukemia GI Medical History: Reports: Diverticulitis, Gastroesophageal Reflux Disease, Hiatal Hernia, Other - Previous SBO requiring bowel resection Denies: Crohn's Disease, Hepatitis Musculoskeltal Medical History: Reports: Arthritis Skin Medical History: Reports: None Psychiatric Medical History: Reports: None Traumatic Medical History: Reports: None Hematology: Reports: Anemia Denies: Hemophilia, Sickle Cell Disease Infectious Medical History: Denies: HIV Past Surgical History Past Surgical History: Reports: Tubal Ligation, Other - Cataract surgery. Partial colectomy. Denies: Amputation, Cardiac Catheterization, Section, Cholecystectomy, Colostomy, Gastric Bypass Surgery, Herniorrhaphy, Mastectomy, Pacemaker, Tonsillectomy Social History Information Source: Patient Smoking Status: Never Smoker Frequency of Alcohol Use: None Hx Recreational Drug Use: No Hx Prescription Drug Abuse: No - Advance Directive Resuscitation Status: Full Code Surrogate healthcare decision maker:: The patient's daughters, Iris Quiñones [phone] and Erin Harris [phone] Family History Family History: Reviewed & Not Pertinent Parental Family History Reviewed: Yes Children Family History Reviewed: Yes Sibling(s) Family History Reviewed.: Yes Medication/Allergy Home Medications: Lovastatin [Mevacor] 20 mg PO QHS 04/10/18 Omeprazole 20 mg PO DAILY 04/10/18 Allergies/Adverse Reactions: propoxyphene HCl [From Darvon] Allergy (Mild, Verified 09/10/17 17:58) FELT FUNNY Review of Systems Constitutional: PRESENT: anorexia. ABSENT: chills, fever(s), headache(s), weight gain, weight loss Eyes: ABSENT: visual disturbances Ears: ABSENT: hearing changes Cardiovascular: ABSENT: chest pain, dyspnea on exertion, edema, orthropnea, palpitations Respiratory: ABSENT: cough, hemoptysis Gastrointestinal: PRESENT: abdominal pain, bloating, nausea, vomiting. ABSENT: constipation, diarrhea, hematemesis, hematochezia Genitourinary: ABSENT: dysuria, hematuria Musculoskeletal: ABSENT: joint swelling Integumentary: ABSENT: rash, wounds Neurological: ABSENT: abnormal gait, abnormal speech, confusion, dizziness, focal weakness, syncope Psychiatric: ABSENT: anxiety, depression, homidical ideation, suicidal ideation Endocrine: ABSENT: cold intolerance, heat intolerance, polydipsia, polyuria Hematologic/Lymphatic: ABSENT: easy bleeding, easy bruising Physical Exam Vital Signs: Temp Pulse Resp BP Pulse Ox 97.5 F 64 13 111/54 L 98 04/11/18 08:06 04/11/18 08:06 04/11/18 08:06 04/11/18 08:06 04/11/18 08:06 Intake & Output 04/10/18 04/11/18 04/12/18 06:59 06:59 06:59 Output Total 200 Balance -200 Weight 40.2 kg General appearance: PRESENT: no acute distress, cooperative, thin, well- developed, well-nourished Head exam: PRESENT: atraumatic, normocephalic Eye exam: PRESENT: conjunctiva pink, EOMI, PERRLA. ABSENT: scleral icterus Ear exam: PRESENT: normal external ear exam Mouth exam: PRESENT: moist, tongue midline Neck exam: ABSENT: carotid bruit, JVD, lymphadenopathy, thyromegaly Respiratory exam: PRESENT: clear to auscultation nathan, symmetrical, unlabored. ABSENT: rales, rhonchi, wheezes Cardiovascular exam: PRESENT: RRR, +S1, +S2. ABSENT: diastolic murmur, rubs, systolic murmur Pulses: PRESENT: normal dorsalis pedis pul Vascular exam: PRESENT: normal capillary refill GI/Abdominal exam: PRESENT: normal bowel sounds, soft, tenderness, other - NG tube in place; draining dark brown/bloody fluid. ABSENT: distended, guarding, mass, organolmegaly, rebound Rectal exam: PRESENT: deferred Extremities exam: PRESENT: full ROM. ABSENT: calf tenderness, clubbing, pedal edema Neurological exam: PRESENT: alert, awake, oriented to person, oriented to place , oriented to time, oriented to situation, CN II-XII grossly intact. ABSENT: motor sensory deficit Psychiatric exam: PRESENT: appropriate affect, normal mood. ABSENT: homicidal ideation, suicidal ideation Skin exam: PRESENT: dry, intact, warm. ABSENT: cyanosis, rash Results Laboratory Results: 04/11/18 13:11 04/11/18 13:11 04/11/18 04/11/18 04/11/18 06:20 06:20 13:11 WBC 10.5 7.8 RBC 4.04 4.23 Hgb 12.9 13.4 Hct 38.5 39.9 MCV 95 94 MCH 31.8 31.7 MCHC 33.5 33.6 RDW 13.3 13.3 Plt Count 203 217 Seg Neutrophils % 81.3 H Lymphocytes % 9.9 L Monocytes % 8.1 Eosinophils % 0.5 Basophils % 0.2 Absolute Neutrophils 8.6 H Absolute Lymphocytes 1.0 Absolute Monocytes 0.8 Absolute Eosinophils 0.1 Absolute Basophils 0.0 Sodium 138.3 Potassium 4.8 Chloride 104 Carbon Dioxide 25 Anion Gap 9 BUN 17 Creatinine 0.82 Est GFR ( Amer) > 60 Est GFR (Non-Af Amer) > 60 Glucose 109 Calcium 8.7 04/11/18 13:11 WBC RBC Hgb Hct MCV MCH MCHC RDW Plt Count Seg Neutrophils % Lymphocytes % Monocytes % Eosinophils % Basophils % Absolute Neutrophils Absolute Lymphocytes Absolute Monocytes Absolute Eosinophils Absolute Basophils Sodium 140.1 Potassium 4.3 Chloride 104 Carbon Dioxide 27 Anion Gap 9 BUN 16 Creatinine 0.79 Est GFR ( Amer) > 60 Est GFR (Non-Af Amer) > 60 Glucose 91 Calcium 8.8 Impressions: Abdomen/Pelvis CT 04/10/18 14:56 IMPRESSION: Findings consistent with a small bowel obstruction without a definite transition point being identified. Small calcified gallstones are identified. Other findings as noted above KUB X-Ray 04/10/18 21:42 IMPRESSION: VERY LARGE HIATAL HERNIA WITH INTRATHORACIC STOMACH. TIP OF THE NASOGASTRIC TUBE IS IN THE STOMACH. Abdomen X-Ray 04/11/18 00:00 IMPRESSION: HIATAL HERNIA WITH INTERVAL DECREASE IN THE GASEOUS DISTENTION. NO SIGNIFICANT DILATED BOWEL LOOPS. Chest X-Ray 04/11/18 06:00 IMPRESSION: 1. NG tube likely curled within an hiatal hernia. Assessment & Plan - Diagnosis (1) SBO (small bowel obstruction) Is this a current diagnosis for this admission?: Yes Plan: The patient was admitted with a small bowel obstruction. She now has an NG tube placed to low wall suction; draining dark brown/bloody fluid. She reports resolution of her abdominal pain, nausea and vomiting. Per patient and nursing, she has had 2 bowel movements today and is passing gas. Surgical team is primary; plan per their expertise. With regard to cardiac clearance for possible surgical intervention; we will obtain an EKG. Otherwise, the patient reports that she is capable of walking 1/2 mile prior to becoming fatigued as well as up a flight of stairs without difficulty. She denies history of chest pain, CA, CAD, CHF. Cardiac risk factors would include age, hypertension, and hyperlipidemia. She has a reasonable cardiac risk and no immediately reversible cardiac risk factors. (2) Hypertension Is this a current diagnosis for this admission?: No Plan: The patient is not on antihypertensives at home; NORMOtensive at present. IV hydralazine as needed for blood pressure control. Would recommend advancing to a cardiac diet when cleared by surgery. (3) Hyperlipidemia Is this a current diagnosis for this admission?: No Plan: Lovastatin on hold while in n.p.o. status. (4) GERD (gastroesophageal reflux disease) Is this a current diagnosis for this admission?: Yes Plan: PPI therapy. (5) History of CVA (cerebrovascular accident) without residual deficits Is this a current diagnosis for this admission?: No - Time Time Spent: 30 to 50 Minutes Medications reviewed and adjusted accordingly: Yes Anticipated discharge: Home
[2018-04-11] MEDS ORDERED: LANSOPRAZOLE 30 MG TAB.RAP.DR PO SCH (17:00)
--- NOTE | 2018-04-11 18:15 | PDOC PROGRESS REPORT ---
Subjective Progress Note for:: 04/11/18 Subjective:: Feels well. No abdominal pain. Reason For Visit: SMALL BOWEL OBSTRUCTION Physical Exam Vital Signs: Temp Pulse Resp BP Pulse Ox 97.5 F 64 13 115/73 94 04/11/18 16:00 04/11/18 16:00 04/11/18 16:00 04/11/18 16:00 04/11/18 16:00 Intake & Output 04/10/18 04/11/18 04/12/18 06:59 06:59 06:59 Intake Total 0 Output Total 200 Balance -200 Weight 40.2 kg General appearance: PRESENT: no acute distress, cooperative Respiratory exam: PRESENT: clear to auscultation nathan Cardiovascular exam: PRESENT: RRR GI/Abdominal exam: PRESENT: other - Soft, nondistended, nontender to palpation. NG tube output is slightly blood-tinged Psychiatric exam: PRESENT: appropriate affect Results Laboratory Results: 04/11/18 13:11 04/11/18 13:11 04/11/18 04/11/18 04/11/18 06:20 06:20 13:11 WBC 10.5 7.8 RBC 4.04 4.23 Hgb 12.9 13.4 Hct 38.5 39.9 MCV 95 94 MCH 31.8 31.7 MCHC 33.5 33.6 RDW 13.3 13.3 Plt Count 203 217 Seg Neutrophils % 81.3 H Lymphocytes % 9.9 L Monocytes % 8.1 Eosinophils % 0.5 Basophils % 0.2 Absolute Neutrophils 8.6 H Absolute Lymphocytes 1.0 Absolute Monocytes 0.8 Absolute Eosinophils 0.1 Absolute Basophils 0.0 Sodium 138.3 Potassium 4.8 Chloride 104 Carbon Dioxide 25 Anion Gap 9 BUN 17 Creatinine 0.82 Est GFR ( Amer) > 60 Est GFR (Non-Af Amer) > 60 Glucose 109 Calcium 8.7 04/11/18 13:11 WBC RBC Hgb Hct MCV MCH MCHC RDW Plt Count Seg Neutrophils % Lymphocytes % Monocytes % Eosinophils % Basophils % Absolute Neutrophils Absolute Lymphocytes Absolute Monocytes Absolute Eosinophils Absolute Basophils Sodium 140.1 Potassium 4.3 Chloride 104 Carbon Dioxide 27 Anion Gap 9 BUN 16 Creatinine 0.79 Est GFR ( Amer) > 60 Est GFR (Non-Af Amer) > 60 Glucose 91 Calcium 8.8 Impressions: Abdomen/Pelvis CT 04/10/18 14:56 IMPRESSION: Findings consistent with a small bowel obstruction without a definite transition point being identified. Small calcified gallstones are identified. Other findings as noted above KUB X-Ray 04/10/18 21:42 IMPRESSION: VERY LARGE HIATAL HERNIA WITH INTRATHORACIC STOMACH. TIP OF THE NASOGASTRIC TUBE IS IN THE STOMACH. Abdomen X-Ray 04/11/18 00:00 IMPRESSION: HIATAL HERNIA WITH INTERVAL DECREASE IN THE GASEOUS DISTENTION. NO SIGNIFICANT DILATED BOWEL LOOPS. Chest X-Ray 04/11/18 06:00 IMPRESSION: 1. NG tube likely curled within an hiatal hernia. Assessment & Plan - Diagnosis (1) SBO (small bowel obstruction) Is this a current diagnosis for this admission?: Yes Plan: Appears to have resolved by exam, her having bowel movements, and abdominal x- rays. She does have a large hiatal hernia and the NG tube is in the stomach that has been herniated into the chest. I will plan to DC her NG tube place her on clear liquids. Of note her hematocrit went up slightly from this morning. There is no elevation of her BUN. All consistent with NG tube irritation of her stomach lining rather than a significant gastrointestinal bleed. However in light of her large hiatal hernia and the blood that was seen in the NG tube I do recommend a upper endoscopy. We will plan this procedure tomorrow. We will make her n.p.o. post midnight.
[2018-04-11] MEDS: PANTOPRAZOLE SODIUM 40 MG VIAL IV SCH (22:09)
--- NOTE | 2018-04-12 00:04 | EKG REPORT ---
SEVERITY:- ABNORMAL ECG - SINUS RHYTHM CONSIDER LEFT VENTRICULAR HYPERTROPHY : Confirmed by: Lanny Hdez MD 12-Apr-2018 00:03:13
[2018-04-12] MEDS ORDERED: ONDANSETRON HCL INJ/PF 4 MG/2 ML SDV ONE (10:33)
[2018-04-12] MEDS ORDERED: DIPHENHYDRAMINE HCL 50 MG/ML VIAL ONE (10:33)
[2018-04-12] MEDS ORDERED: NALOXONE HCL INJ/PF 0.4 MG/1 ML SDV ONE (10:33)
[2018-04-12] MEDS ORDERED: EPINEPHRINE INJ 1 MG/10 ML DISP.SYRIN ONE (10:34)
[2018-04-12] MEDS ORDERED: FLUMAZENIL INJ 0.5 MG/5 ML VIAL ONE (10:34)
[2018-04-12] MEDS ORDERED: GLUCAGON,HUMAN RECOMB 1 MG INJ ONE (10:34)
[2018-04-12] MEDS: PANTOPRAZOLE SODIUM 40 MG VIAL IV SCH (10:51)
[2018-04-12] MEDS: ENOXAPARIN SODIUM INJ 30 MG/0.3 ML DISP.SYRIN SUBCUT SCH (10:51)
--- NOTE | 2018-04-12 11:54 | PDOC PROGRESS REPORT ---
Subjective Progress Note for:: 04/12/18 Reason For Visit: SMALL BOWEL OBSTRUCTION Patient feels better; tolerating nasogastric tube out. On further questioning, patient has had problems with poor digestion for years. Physical Exam Vital Signs: Temp Pulse Resp BP Pulse Ox 98.7 F 68 14 137/69 H 96 04/12/18 08:07 04/12/18 08:07 04/12/18 08:07 04/12/18 08:07 04/12/18 08:07 Intake & Output 04/11/18 04/12/18 04/13/18 06:59 06:59 06:59 Intake Total 200 Output Total 200 Balance 0 Weight 40.2 kg 45 kg General appearance: PRESENT: no acute distress GI/Abdominal exam: PRESENT: other - No peritoneal signs soft no distention Results Laboratory Results: 04/11/18 13:11 04/11/18 13:11 04/11/18 04/11/18 13:11 13:11 WBC 7.8 RBC 4.23 Hgb 13.4 Hct 39.9 MCV 94 MCH 31.7 MCHC 33.6 RDW 13.3 Plt Count 217 Sodium 140.1 Potassium 4.3 Chloride 104 Carbon Dioxide 27 Anion Gap 9 BUN 16 Creatinine 0.79 Est GFR ( Amer) > 60 Est GFR (Non-Af Amer) > 60 Glucose 91 Calcium 8.8 Impressions: Abdomen/Pelvis CT 04/10/18 14:56 IMPRESSION: Findings consistent with a small bowel obstruction without a definite transition point being identified. Small calcified gallstones are identified. Other findings as noted above KUB X-Ray 04/10/18 21:42 IMPRESSION: VERY LARGE HIATAL HERNIA WITH INTRATHORACIC STOMACH. TIP OF THE NASOGASTRIC TUBE IS IN THE STOMACH. Abdomen X-Ray 04/11/18 00:00 IMPRESSION: HIATAL HERNIA WITH INTERVAL DECREASE IN THE GASEOUS DISTENTION. NO SIGNIFICANT DILATED BOWEL LOOPS. Chest X-Ray 04/11/18 06:00 IMPRESSION: 1. NG tube likely curled within an hiatal hernia. Assessment & Plan - Diagnosis (1) SBO (small bowel obstruction) Is this a current diagnosis for this admission?: Yes Plan: Resolved, tolerating nasogastric tube out; tolerating clear liquids last p.m. (2) Hiatal hernia Is this a current diagnosis for this admission?: Yes Plan: Large, chronic, dramatically symptomatic with the NG tube output Recommendations: 1. We will perform EGD, biopsies as indicated in endoscopy under conscious sedation. 2. If patient continues to do well advance diet discharge home
[2018-04-12] MEDS: MIDAZOLAM 2 MG/2 ML INJ ONE ×2 (12:24→12:26)
[2018-04-12] MEDS: FENTANYL CITRATE INJ/PF 100 MCG/2 ML AMPUL ONE ×2 (12:28→12:30)
--- NOTE | 2018-04-12 13:00 | Operative Report ---
Operative Report DATE OF SURGERY: 04/12/18 PREOPERATIVE DIAGNOSIS: 1. Large hiatal hernia. 2. Resolved small bowel obstruction. 3. Heme positive NG output POSTOPERATIVE DIAGNOSIS: Same with mild to moderate gastritis OPERATION: Esophagogastroduodenoscopy SURGEON: ROSARIO MEI ANESTHESIA: Moderate Sedation TISSUE REMOVED OR ALTERED: None COMPLICATIONS: None ESTIMATED BLOOD LOSS: Scant INTRAOPERATIVE FINDINGS: See below PROCEDURE: The patient was taken from the floor to the endoscopy suite where monitoring devices were attached oral mouthpiece inserted and conscious sedation initiated. Surgical plan surgical timeout were conducted. The flexible upper endoscope was advanced to the patient's oropharynx down the esophagus. Approximately 35 cm from the incisor we got into the stomach proper. The stomach was dilated. There were streaks of gastric inflammation. Photos taken. Some small areas of early erosion identified. No evidence of tumor stricture bleeding or jasmina ulcer. With some manipulation, we are able to advance the upper endoscope through the pylorus into the first and second portions of the duodenum. Was bile present no other pathology seen Scope was withdrawn back into the stomach. Scope was retroflexed several times and no evidence of ulcer seen along the cardia. Scope was straightened and brought back to the esophagus. The esophagus was grossly normal. Scope was withdrawn the patient's oropharynx. She tolerated procedure well. Recommendations: 1. Advance diet 2. Anticipate discharge home later today on antacids.
[2018-04-12 14:20] VITALS: BP 135/68
--- NOTE | 2018-04-19 12:25 | DISCHARGE SUMMARY E ---
Discharge Summary NAME: HERMELINDA SALAS : 1930 AGE: 88Y ADMITTED: 04/10/2018 DISCHARGED: 04/12/2018 REASON FOR ADMISSION: Abdominal pain. SUMMARY OF HOSPITALIZATION: The patient was admitted to the surgical service, kept NPO on IV fluids, and had a nasogastric tube placed. CT scan of the abdomen and pelvis revealed a large hiatal hernia, and findings consistent with a partial small bowel obstruction. Overnight, the patient improved clinically. She had decreased NG tube output and at the 2nd hospital day, the nasogastric tube was removed. The patient did have an episode of heme-positive nasogastric drainage. She therefore underwent upper endoscopy by Dr. Simmons on 04/12/2018, and she was found to have a large hiatal hernia and moderate gastritis. Following that procedure, she was started on a diet, advanced and tolerated well. By the 3rd hospital day, she was ready for discharge home. DISPOSITION: The patient will be discharged to home in the care of her family. Follow up with [facility] on an as needed basis. She will resume her preoperative medications, diet, and activity. DICTATING PHYSICIAN: ROSARIO SIMMONS M.D. [id number] PHY#: [id number] ID: [id number] JOB#: [id number] ACCT: [id number] cc:MARA SPENCE M.D. Jacqueline GONCALVES M.D. >
== END 2018-04-12 18:21 | disposition home or self-care (01) | DRG 390 ==
LOC: ER 14:14 → EH 17:48 → 4S 19:53
PROVIDERS: ADMIT Surgery; ATTEND Surgery
PROC: 0D9670Z Drainage of Stomach with Drainage Device, Via Natural or Artificial Opening (ICD-10-PCS; principal; 2018-04-10)
PROC: 0DJ08ZZ Inspection of Upper Intestinal Tract, Via Natural or Artificial Opening Endoscopic (ICD-10-PCS; 2018-04-12)
DX: K56.609 Unspecified intestinal obstruction, unspecified as to partial versus complete obstruction (principal); E78.00 Pure hypercholesterolemia, unspecified; I10 Essential (primary) hypertension; Z86.73 Personal history of transient ischemic attack (TIA), and cerebral infarction without residual deficits; K21.9 Gastro-esophageal reflux disease without esophagitis; K44.9 Diaphragmatic hernia without obstruction or gangrene; M19.90 Unspecified osteoarthritis, unspecified site; D64.9 Anemia, unspecified; K80.80 Other cholelithiasis without obstruction; Z90.49 Acquired absence of other specified parts of digestive tract; Z88.6 Allergy status to analgesic agent; Z98.49 Cataract extraction status, unspecified eye; Z79.899 Other long term (current) drug therapy; K29.70 Gastritis, unspecified, without bleeding
CPT/HCPCS: 36415; 43235; 71045; 74018; 74019; 74177; 80048; 80053; 81001; 85025; 85027; 93005; 93010; 96361; 96374; 96375; 99285; J0171; J1200; J1610; J1650; J2250; J2270; J2310; J2405; J2765; J3010; J3490; J7030; S0164

== ENCOUNTER 2018-05-20 01:27 | Inpatient (IN) | payer MEDICARE, OTHER, MEDICAID ==
[2018-05-20] MEDS ORDERED: MAG HYDROX/AL HYDROX/SIMETH SUSP 30 ML UDCUP PO ONE (01:52)
[2018-05-20] MEDS ORDERED: METOCLOPRAMIDE HCL ORAL SOLN 10 MG/10 ML UDCUP PO ONE (01:52)
[2018-05-20] MEDS ORDERED: LIDOCAINE 2% VISCOUS SOLN 20 ML UDCUP PO ONE (01:52)
[2018-05-20] MEDS ORDERED: MORPHINE SULFATE 10 MG/ML INJ IV ONE ×3 (01:53→04:56)
--- NOTE | 2018-05-20 01:53 | ER Document Report ---
ED General - General Chief Complaint: Abdominal Pain Stated Complaint: LOWER BACK PAIN Time Seen by Provider: 05/20/18 01:48 Notes: Patient is a 88-year-old female who presents with complaint of body pain and vomiting that started this afternoon. Patient says she has had similar pains in the past with gastritis and also had a bowel obstruction recently which developed similar pains however this time she says the pain is more severe and ffeels like a more severe version of gastritis. No blood in her emesis. No black or tarry stools. No fevers. She does have history of hiatal hernia with gastritis. Says the pain is in her stomach and radiates up into her chest. TRAVEL OUTSIDE OF THE [place] IN LAST 30 DAYS: No - Related Data Allergies/Adverse Reactions: propoxyphene HCl [From Darvon] Allergy (Mild, Verified 09/10/17 17:58) FELT FUNNY Past Medical History - Social History Smoking Status: Never Smoker Frequency of alcohol use: None Drug Abuse: None Family History: Reviewed & Not Pertinent Patient has suicidal ideation: No Patient has homicidal ideation: No - Past Medical History Cardiac Medical History: Reports: Hx Hypercholesterolemia, Hx Hypertension Denies: Hx Atrial Fibrillation, Hx Congestive Heart Failure, Hx Coronary Artery Disease, Hx Heart Attack, Hx Peripheral Vascular Disease, Hx Heart Murmur Pulmonary Medical History: Denies: Hx Asthma, Hx COPD, Hx Tuberculosis Neurological Medical History: Reports: Hx Cerebrovascular Accident - 2008. Denies: Hx Seizures Renal/ Medical History: Denies: Hx Peritoneal Dialysis Malignancy Medical History: Denies: Hx Leukemia GI Medical History: Reports: Hx Diverticulitis, Hx Gastroesophageal Reflux Disease, Hx Hiatal Hernia. Denies: Hx Crohn's Disease, Hx Hepatitis, Hx Irritable Bowel, Hx Liver Failure, Hx Pancreatitis, Hx Ulcer Musculoskeletal Medical History: Reports Hx Arthritis Infectious Medical History: Denies: Hx Hepatitis, Hx HIV Past Surgical History: Reports: Hx Bowel Surgery - Hemicolectomy for diverticulitis in 1979, Hx Tubal Ligation, Other - Cataract surgery. Partial colectomy.. Denies: Hx Cardiac Catheterization, Hx Section, Hx Cholecystectomy, Hx Colostomy, Hx Gastric Bypass Surgery, Hx Herniorrhaphy, Hx Hysterectomy, Hx Mastectomy, Hx Open Heart Surgery, Hx Pacemaker, Hx Tonsillectomy - Immunizations Hx Pneumococcal Vaccination: 01/01/09 Review of Systems - Review of Systems Notes: My Normal Review Basic REVIEW OF SYSTEMS: CONSTITUTIONAL : Denies fever, chills, or sweats. Denies recent illness. EENT: Denies eye, ear, throat, or mouth pain or symptoms. Denies nasal or sinus congestion. CARDIOVASCULAR: Pressure into chest. RESPIRATORY: Denies cough, cold, or chest congestion. Denies shortness of breath, difficulty breathing, or wheezing. GASTROINTESTINAL: Some upper abdominal pain. Some nausea and vomiting. MUSCULOSKELETAL: Denies neck or back pain or joint pain or swelling. SKIN: Denies rash or skin lesions. NEUROLOGICAL: Denies altered mental status or loss of consciousness. Denies headache. Denies weakness or paralysis or loss of use of either side. Denies problems with gait or speech. Denies sensory or motor loss. ALL OTHER SYSTEMS REVIEWED AND NEGATIVE. Physical Exam - Vital signs Vitals: Temp Pulse Resp BP Pulse Ox 97.5 F 67 16 122/82 98 05/20/18 01:30 05/20/18 01:30 05/20/18 01:30 05/20/18 01:30 05/20/18 01:30 - Notes Notes: General Appearance: Well nourished, alert, cooperative, no acute distress, moderate obvious discomfort. Vitals: reviewed, See vital signs table. Head: no swelling or tenderness to the head Eyes: PERRL, EOMI, Conjuctiva clear Mouth: No decreasd moisture Throat: No tonsillar inflammation, No airway obstruction, No lymphadenopathy Neck: Supple, no neck tenderness Lungs: No wheezing, No rales, No rhonci, No accessory muscle use, good air exchange bilaterally. Heart: Normal rate, Regular rythm, No murmur, no rub Abdomen: Normal BS, soft, No rigidity, patient has limited pain is reproducible to palpation of the upper abdomen. Abdomen is not distended. no guarding, no rebound, no abdominal masses, no organomegaly Extremities: strength 5/5 in all extremities, good pulses in all extremities, no edema. Skin: warm, dry, appropriate color, no rash Neuro: speech clear, oriented x 3, normal affect, responds appropriately to questions. Course - Re-evaluation Re-evalutation: 05/20/18 04:52 Patient continues to have current spitting up. She was able to hold on the Carafate however she continues says she feels very nauseous and continues a splint in emesis bag. She continues to look somewhat uncomfortable. Do not suspect obstruction of the patient's acute abdominal series shows no evidence of obstruction, her abdomen is not distended, and most depression pain is into her lower chest where her hiatal hernias. I think this is all result of severe gastritis with hiatal hernia. Her daughter says that she is not compliant with her medications and that she does have flareups some to this however this 1 is more intense than typical. I did talk to patient length. At this time will admit the patient due to her continued discomfort and continue waves of nausea. I spoke with Dr. Herrera, patient's primary care physician, who agrees to admit the patient. Dictation of this chart was performed using voice recognition software; therefore, there may be some unintended grammatical errors. - Vital Signs Vital signs: Temp Pulse Resp BP Pulse Ox 97.5 F 67 16 122/82 98 05/20/18 01:30 05/20/18 01:30 05/20/18 01:30 05/20/18 01:30 05/20/18 01:30 - Laboratory Result Diagrams: 05/20/18 02:15 05/20/18 02:15 Laboratory results interpreted by me: 05/20/18 05/20/18 05/20/18 02:15 02:15 02:26 Seg Neutrophils % 81.7 H Lymphocytes % 12.5 L Glucose 143 H Ur Leukocyte Esterase TRACE H Urine Ascorbic Acid 40 H Discharge - Discharge Clinical Impression: Hiatal hernia Vomiting Qualifiers: Vomiting type: unspecified Vomiting Intractability: intractable Nausea presence : with nausea Qualified Code(s): R11.2 - Nausea with vomiting, unspecified GERD (gastroesophageal reflux disease) Qualifiers: Esophagitis presence: esophagitis presence not specified Qualified Code(s): K21.9 - Gastro-esophageal reflux disease without esophagitis Condition: Stable Disposition: ADMITTED OBSERVATION Admitting Provider: Javier Unit Admitted: Telemetry
[2018-05-20] MEDS ORDERED: ONDANSETRON HCL INJ/PF 4 MG/2 ML SDV IV ONE (02:07)
[2018-05-20 02:25] LABS: ABSOLUTE MONOCYTES (AUTO) 0.4 10^3/uL (0.1-1.4); ABSOLUTE NEUT (AUTO) 6.5 10^3/uL (1.7-8.2); BASOPHILS % (AUTO) 0.3 % (0-2); EOSINOPHILS % (AUTO) 0.5 % (0-6); HEMATOCRIT 38.2 % (36.0-47.0); HEMOGLOBIN 12.9 g/dL (12.0-15.5); LYMPHOCYTES % (AUTO) 12.5 % (13-45); MEAN CORPUSCULAR HEMOGLOBIN 31.9 pg (27.0-33.4); MEAN CORPUSCULAR HGB CONC 33.7 g/dL (32.0-36.0); MEAN CORPUSCULAR VOLUME 95 fl (80-97); PLATELET COUNT 201 10^3/uL (150-450); RED BLOOD COUNT 4.03 10^6/uL (3.72-5.28); RED CELL DISTRIBUTION WIDTH 13.3 % (11.5-14.0); SEGMENTED NEUTROPHILS % (AUTO) 81.7 % (42-78); TOTAL CELLS COUNTED % (AUTO) 100 %
[2018-05-20 02:39] LABS: APPEARANCE,URINE SLIGHTLY-CLOUDY; BILIRUBIN,URINE NEGATIVE (NEGATIVE); COLOR,URINE YELLOW; GLUCOSE, URINE NEGATIVE (NEGATIVE); KETONES,URINE NEGATIVE (NEGATIVE); LEUKOCYTE ESTERASE,URINE TRACE (NEGATIVE); NITRITE,URINE NEGATIVE (NEGATIVE); PROTEIN,URINE NEGATIVE (NEGATIVE); URINE SPECIFIC GRAVITY 1.019; UROBILINOGEN,URINE NEGATIVE mg/dL (<2.0)
[2018-05-20 02:49] LABS: ALANINE AMINOTRANSFERASE 25 U/L (9-52); ALBUMIN 4.1 g/dL (3.5-5.0); ALKALINE PHOSPHATASE 71 U/L (38-126); ANION GAP 10 (5-19); ASPARTATE AMINO TRANSFERASE 27 U/L (14-36); BILIRUBIN,DIRECT 0.3 mg/dL (0.0-0.4); BILIRUBIN,TOTAL 0.6 mg/dL (0.2-1.3); BLOOD UREA NITROGEN 17 mg/dL (7-20); CALCIUM 9.4 mg/dL (8.4-10.2); CARBON DIOXIDE 29 mmol/L (22-30); CHLORIDE 105 mmol/L (98-107); GLUCOSE 143 mg/dL (75-110); POTASSIUM 4.3 mmol/L (3.6-5.0); SODIUM 143.9 mmol/L (137-145); TOTAL PROTEIN 7.1 g/dL (6.3-8.2)
[2018-05-20] MEDS ORDERED: PANTOPRAZOLE SODIUM 40 MG VIAL IV ONE (03:14)
--- NOTE | 2018-05-20 03:40 | RADIOLOGY REPORT (SQ) ---
EXAM DESCRIPTION: XR ABDOMEN SUPINE AND ERECT WITH CHEST (ABD ACUTE SERIES) COMPLETED DATE/TME: 05/20/2018 01:52 CLINICAL HISTORY: 88 years Female, abdominal pain COMPARISON: 7.26.18. CT, chest, report only, September 10, 2017. NUMBER OF VIEWS/TECHNIQUE: 3 LIMITATIONS: None. FINDINGS: 19 cm hiatal hernia, atherosclerosis, moderate chronic interstitial lung disease pattern, scoliotic curvature. Intestinal gas pattern is otherwise within normal limits. Paucity of bowel gas. No suspicious calcification. Grossly intact skeletal structures. No acute cardiopulmonary findings. IMPRESSION: No acute findings. 19 cm hiatal hernia.
[2018-05-20] MEDS ORDERED: SUCRALFATE SUSP 1 GM/10 ML UDCUP PO ONE (04:07)
[2018-05-20] MEDS ORDERED: DEXTROSE 5%-1/4 NORMAL SALINE 1,000 ML IV PRN (07:49)
[2018-05-20] MEDS ORDERED: DEXTROSE 50%-WATER 25 GM/50 ML DISP.SYRIN IV PRN ×2 (07:49)
[2018-05-20] MEDS ORDERED: GLUCAGON,HUMAN RECOMB 1 MG INJ SUBCUT PRN (07:49)
[2018-05-20] MEDS ORDERED: DEXTROSE 40% GEL 15 GM TUBE PO PRN ×2 (07:49)
--- NOTE | 2018-05-20 08:12 | EKG REPORT ---
SEVERITY:- ABNORMAL ECG - SINUS RHYTHM CONSIDER LEFT VENTRICULAR HYPERTROPHY : Confirmed by: Rafat Krishnamurthy MD 20-May-2018 08:11:52
[2018-05-20] MEDS: METOCLOPRAMIDE HCL INJ/PF 10 MG/2 ML SDV IV SCH ×4 (09:02→21:45)
[2018-05-20] MEDS: ONDANSETRON HCL INJ/PF 4 MG/2 ML SDV IV PRN ×2 (09:02→16:36)
[2018-05-20] MEDS: LANSOPRAZOLE 30 MG TAB.RAP.DR PO SCH (09:03)
[2018-05-20] MEDS ORDERED: ALBUTEROL SULFATE HFA (90 MCG/PUFF) 8 GM MDI (1 MDI/ER DISP) IH SCH (10:00)
[2018-05-20] MEDS: DEXTROSE 5%-1/4 NORMAL SALINE 500 ML IV PRN ×4 (10:01→20:47)
[2018-05-20] MEDS: ENOXAPARIN SODIUM INJ 30 MG/0.3 ML DISP.SYRIN SUBCUT SCH (10:02)
[2018-05-20] MEDS: ALBUTEROL SULFATE HFA (90 MCG/PUFF) 200 PUFF/8.5 GM MDI IH SCH ×4 (10:07→21:47)
[2018-05-20] MEDS: PROMETHAZINE HCL 25 MG SUPP.RECT PR PRN (10:20)
[2018-05-20] MEDS ORDERED: MORPHINE SULFATE 60 MG/60 ML RTUINJ IV PRN (11:07)
--- NOTE | 2018-05-20 11:31 | PDOC H&P ---
History of Present Illness Admission Date/PCP: 05/20/18 05:14 MARA SPENCE MD Patient complains of: vomiting diffuse pain again History of Present Illness: HERMELINDA SALAS is a 88 year old female. with recurrent vomiting abdominal and back pain radiating into chest and neck but not legs. [place] [facility] [place] this with constipation. 7w ago she was admitted with transient small bowel obstruction and gastritis with most of stomach above the diaphram on ct. Was ok till yesterday when it all started again. She is known to have bad kyphoscoliosis with spinal stenosis. She has had no relief from morphine ondansetron metoclopramide and rectal phenergan so far. She does want cpr & vent if needed. Past Medical History Cardiac Medical History: Reports: Hyperlipidema, Hypertension Denies: Atrial Fibrillation, Congestive Heart Failure, Coronary Artery Disease, Myocardial Infarction, Peripheral Vascular Disease, Heart Murmur Pulmonary Medical History: Reports: Chronic Obstructive Pulmonary Disease (COPD) Denies: Tuberculosis Neurological Medical History: Denies: Seizures Endocrine Medical History: Reports: Hypothyroidism Renal/ Medical History: Reports: None Malignancy Medical History: Reports: None GI Medical History: Reports: Diverticulitis, Gastroesophageal Reflux Disease, Hiatal Hernia Denies: Crohn's Disease, Hepatitis Musculoskeltal Medical History: Reports: Arthritis Skin Medical History: Reports: None Psychiatric Medical History: Reports: Dementia Hematology: Reports: Anemia Denies: Hemophilia, Sickle Cell Disease Infectious Medical History: Reports: None Past Surgical History Past Surgical History: Reports: Tubal Ligation, Other - Cataract surgery. Partial colectomy. Denies: Amputation, Cardiac Catheterization, Section, Cholecystectomy, Colostomy, Gastric Bypass Surgery, Herniorrhaphy, Hysterectomy , Mastectomy, Pacemaker, Tonsillectomy Social History Information Source: Dr. Drake Lives with: Alone Smoking Status: Never Smoker Frequency of Alcohol Use: None Hx Recreational Drug Use: No Hx Prescription Drug Abuse: No Family History Family History: Reviewed & Not Pertinent Parental Family History Reviewed: Yes Children Family History Reviewed: Yes Sibling(s) Family History Reviewed.: Yes Medication/Allergy Home Medications: Albuterol Sulfate [Proair HFA Inhalation Aerosol 8.5 gm MDI] 2 puff IH QIDP PRN 05/20/18 Losartan Potassium [Cozaar 50 mg Tablet] 50 mg PO DAILY 05/20/18 Lovastatin [Altoprev] 20 mg PO QHS 05/20/18 Allergies/Adverse Reactions: propoxyphene HCl [From Darvon] Allergy (Mild, Verified 09/10/17 17:58) FELT FUNNY Review of Systems Constitutional: PRESENT: weight loss - 2#. ABSENT: fever(s), headache(s) Nose, Mouth, and Throat: ABSENT: sore throat Cardiovascular: PRESENT: chest pain - pleuritic. ABSENT: dyspnea on exertion, orthropnea Respiratory: PRESENT: dyspnea. ABSENT: cough, sputum Gastrointestinal: PRESENT: abdominal pain, vomiting. ABSENT: constipation, diarrhea, hematemesis, hematochezia Genitourinary: PRESENT: dysuria. ABSENT: hematuria Musculoskeletal: PRESENT: back pain Integumentary: ABSENT: rash Physical Exam Vital Signs: Temp Pulse Resp BP Pulse Ox 98.5 F 84 16 122/69 96 05/20/18 06:24 05/20/18 06:24 05/20/18 06:24 05/20/18 06:24 05/20/18 06:24 General appearance: PRESENT: severe distress Eye exam: ABSENT: conjunctival injection, scleral icterus Mouth exam: PRESENT: dry mucosa Neck exam: ABSENT: lymphadenopathy, tenderness, thyromegaly, tracheal deviation Respiratory exam: PRESENT: clear to auscultation nathan Cardiovascular exam: ABSENT: diastolic murmur, irregular rhythm, systolic murmur GI/Abdominal exam: PRESENT: tenderness - mild periumbilical. Ribs rest on pelvis. ABSENT: mass, organolmegaly Extremities exam: ABSENT: pedal edema Musculoskeletal exam: PRESENT: other - kyphoscoliosis Neurological exam: PRESENT: alert, oriented to situation Psychiatric exam: PRESENT: anxious Results Laboratory Results: Abnormal - 24 hr 05/20/18 05/20/18 05/20/18 02:15 02:15 02:26 Seg Neutrophils % 81.7 H Lymphocytes % 12.5 L Glucose 143 H Ur Leukocyte Esterase TRACE H Urine Ascorbic Acid 40 H Impressions: Acute Abdomen Series 05/20/18 01:52 IMPRESSION: No acute findings. 19 cm hiatal hernia. 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 (2) Vomiting Qualifiers: Vomiting type: cyclical vomiting Vomiting Intractability: non-intractable Nausea presence: with nausea Qualified Code(s): G43.A0 - Cyclical vomiting, not intractable Is this a current diagnosis for this admission?: Yes Plan: ondansetron metoclopramide promethazine ivf (3) Mixed hyperlipidemia Is this a current diagnosis for this admission?: Yes (4) Atrophy of thyroid Is this a current diagnosis for this admission?: Yes (5) Carotid artery syndrome Is this a current diagnosis for this admission?: Yes (6) Alzheimer's disease with late onset Qualifiers: Dementia behavioral disturbance: without behavioral disturbance Qualified Code(s): G30.1 - Alzheimer's disease with late onset; F02.80 - Dementia in other diseases classified elsewhere without behavioral disturbance; F02.80 - Dementia in other diseases classified elsewhere without behavioral disturbance; F02.80 - Dementia in other diseases classified elsewhere without behavioral disturbance Is this a current diagnosis for this admission?: Yes (7) Allergic rhinitis due to pollen Qualifiers: Allergic rhinitis seasonality: seasonal Qualified Code(s): J30.1 - Allergic rhinitis due to pollen Is this a current diagnosis for this admission?: Yes (8) Panlobular emphysema Is this a current diagnosis for this admission?: Yes (9) Essential (primary) hypertension Is this a current diagnosis for this admission?: Yes (11) B12 deficiency Is this a current diagnosis for this admission?: Yes (12) Gastro-esophageal reflux disease without esophagitis Is this a current diagnosis for this admission?: Yes (13) Lumbosacral stenosis Is this a current diagnosis for this admission?: Yes (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, thoracolumbar region Is this a current diagnosis for this admission?: Yes - Inpatient Certification Based on my medical assessment, after consideration of the patient's comorbidities, presenting symptoms, or acuity I expect that the services needed warrant INPATIENT care.: Yes I certify that my determination is in accordance with my understanding of Medicare's requirements for reasonable and necessary INPATIENT services [42 CFR 412.3e].: Yes Medical Necessity: Failure to Improve With Outpatient Therapy, Significant Comorbidiites Make Outpatient Treatment Too Risky, Need Close Monitoring Due to Risk of Patient Decompensation, Need For IV Fluids, Risk of Complication if Not Cared For in Hospital, Risk of Diagnosis Which Will Require Inpatient Eval/Care/ Monitoring
[2018-05-20] MEDS: HYDRALAZINE HCL INJ/PF 20 MG/1 ML SDV IV PRN (17:54)
[2018-05-21] MEDS: DEXTROSE 5%-1/4 NORMAL SALINE 500 ML IV PRN ×3 (01:25→10:06)
[2018-05-21] MEDS: LANSOPRAZOLE 30 MG TAB.RAP.DR PO SCH (05:30)
[2018-05-21] MEDS: METOCLOPRAMIDE HCL INJ/PF 10 MG/2 ML SDV IV SCH ×4 (08:04→22:12)
--- NOTE | 2018-05-21 08:24 | Physician Advisory Note ---
Physician Advisor ProgressNote .: Pursuant to the [facility], I have reviewed the medical record for this patient. Physician Advisor Statement: Please consider documenting, if you agree: 1. Medical necessity: each day, the specific reasons "this pt, at this time", is not able to be safely d/c'd - ongoing concerns.... Status: 88yo Medicare pt w/severe kyphoscoliosis/spinal stenosis ("ribs resting on pelvis"), 19cm hiatal hernia w/most of stomach in chest, severe GERD , prior gastritis & SBO, along w/COPD, dementia, hypothyroidism, prior partial colectomy, noncompliance w/meds per daughter, came in w/severe generalized abd pain & recurrent vomiting with no relief from morphine/Zofran/Reglan/[place] Phenergan in ED. 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 By HS, she was drowsy/ slow to respond, w/speech delayed but improved GI sx. If pt is not better enough to take diet & po meds & safely go home today, please document this w/reasons, & may change to Inpatient status. Thanks! CK
[2018-05-21] MEDS ORDERED: OXYCODONE HCL IR 5 MG TABLET PO PRN (08:28)
--- NOTE | 2018-05-21 08:32 | PDOC PROGRESS REPORT ---
Subjective Progress Note for:: 05/21/18 Subjective:: pains much better. No more vomiting. Reason For Visit: CYCLIC VOMITING Physical Exam Vital Signs: Temp Pulse Resp BP Pulse Ox 98.6 F 82 15 141/82 H 95 05/21/18 07:34 05/21/18 07:34 05/21/18 07:34 05/21/18 07:34 05/21/18 07:34 Intake & Output 05/20/18 05/21/18 05/22/18 07:59 07:59 07:59 Intake Total 2273 Balance 2273 Weight 105 lb 2.568 oz General appearance: PRESENT: no acute distress Respiratory exam: PRESENT: clear to auscultation nathan Cardiovascular exam: ABSENT: diastolic murmur, irregular rhythm, systolic murmur GI/Abdominal exam: ABSENT: diminished bowel sounds, mass, organolmegaly, tenderness Extremities exam: ABSENT: pedal edema Neurological exam: PRESENT: oriented to situation Psychiatric exam: PRESENT: appropriate affect Results Laboratory Results: 05/20/18 12:13 Troponin I < 0.012 Impressions: Acute Abdomen Series 05/20/18 01:52 IMPRESSION: No acute findings. 19 cm hiatal hernia. Assessment & Plan - Diagnosis (1) Abdominal pain Qualifiers: Abdominal location: generalized Qualified Code(s): R10.84 - Generalized abdominal pain Is this a current diagnosis for this admission?: Yes Plan: oxycodone 5mg tid prn (2) Vomiting Qualifiers: Vomiting type: cyclical vomiting Vomiting Intractability: non-intractable Nausea presence: with nausea Qualified Code(s): G43.A0 - Cyclical vomiting, not intractable Is this a current diagnosis for this admission?: Yes Plan: clear liquids (3) Mixed hyperlipidemia Is this a current diagnosis for this admission?: Yes (4) Atrophy of thyroid Is this a current diagnosis for this admission?: Yes (5) Carotid artery syndrome Is this a current diagnosis for this admission?: Yes (6) Alzheimer's disease with late onset Qualifiers: Dementia behavioral disturbance: without behavioral disturbance Qualified Code(s): G30.1 - Alzheimer's disease with late onset; F02.80 - Dementia in other diseases classified elsewhere without behavioral disturbance; F02.80 - Dementia in other diseases classified elsewhere without behavioral disturbance; F02.80 - Dementia in other diseases classified elsewhere without behavioral disturbance Is this a current diagnosis for this admission?: Yes (7) Allergic rhinitis due to pollen Qualifiers: Allergic rhinitis seasonality: seasonal Qualified Code(s): J30.1 - Allergic rhinitis due to pollen Is this a current diagnosis for this admission?: Yes (8) Panlobular emphysema Is this a current diagnosis for this admission?: Yes (9) Essential (primary) hypertension Is this a current diagnosis for this admission?: Yes (11) B12 deficiency Is this a current diagnosis for this admission?: Yes (12) Gastro-esophageal reflux disease without esophagitis Is this a current diagnosis for this admission?: Yes (13) Lumbosacral stenosis Is this a current diagnosis for this admission?: Yes (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, thoracolumbar region Is this a current diagnosis for this admission?: Yes - Inpatient Certification Medical Necessity: Significant Comorbidiites Make Outpatient Treatment Too Risky , Need Close Monitoring Due to Risk of Patient Decompensation, Need For IV Fluids, Need for Pain Control, Risk of Complication if Not Cared For in Hospital , Risk of Diagnosis Which Will Require Inpatient Eval/Care/Monitoring
[2018-05-21] MEDS ORDERED: ONDANSETRON HCL INJ/PF 4 MG/2 ML SDV IV PRN (09:00)
[2018-05-21] MEDS: ALBUTEROL SULFATE HFA (90 MCG/PUFF) 200 PUFF/8.5 GM MDI IH SCH ×4 (09:55→22:16)
[2018-05-21] MEDS: ENOXAPARIN SODIUM INJ 30 MG/0.3 ML DISP.SYRIN SUBCUT SCH (09:56)
[2018-05-21] MEDS: BUSPIRONE HCL 10 MG TABLET PO SCH ×2 (14:08→22:13)
[2018-05-21] MEDS ORDERED: DEXTROSE 5%-1/4 NORMAL SALINE 1,000 ML IV PRN (14:16)
[2018-05-21] MEDS: PROMETHAZINE HCL 25 MG SUPP.RECT PR PRN (19:42)
[2018-05-21] MEDS: HYDRALAZINE HCL INJ/PF 20 MG/1 ML SDV IV PRN (20:53)
[2018-05-22] MEDS ORDERED: LANSOPRAZOLE 30 MG TAB.RAP.DR PO SCH (06:00)
[2018-05-22] MEDS: BUSPIRONE HCL 10 MG TABLET PO SCH (06:18)
--- NOTE | 2018-05-22 08:19 | PDOC PROGRESS REPORT ---
Subjective Progress Note for:: 05/22/18 Subjective:: spitting up again. Dyspnea on 3L. Daughter wondered if needs [facility]. Reason For Visit: CYCLIC VOMITING Physical Exam Vital Signs: Temp Pulse Resp BP Pulse Ox 98.7 F 105 H 21 H 153/82 H 100 05/21/18 20:19 05/21/18 23:30 05/21/18 23:30 05/21/18 23:30 05/21/18 23:30 Intake & Output 05/21/18 05/22/18 05/23/18 07:59 07:59 07:59 Intake Total 2273 1598 Balance 2273 1598 Weight 105 lb 2.568 oz 106 lb 4.205 oz General appearance: PRESENT: mild distress Respiratory exam: PRESENT: accessory muscle use, clear to auscultation nathan Cardiovascular exam: ABSENT: diastolic murmur, irregular rhythm, systolic murmur GI/Abdominal exam: ABSENT: mass, organolmegaly, tenderness Extremities exam: ABSENT: pedal edema Neurological exam: PRESENT: oriented to situation Psychiatric exam: PRESENT: appropriate affect Results Laboratory Results: 05/20/18 12:13 Troponin I < 0.012 Impressions: Acute Abdomen Series 05/20/18 01:52 IMPRESSION: No acute findings. 19 cm hiatal hernia. Assessment & Plan - Diagnosis (1) Hiatal hernia Is this a current diagnosis for this admission?: Yes Plan: now massive in chest with air fluid level. I explained prohibitive risk of fundoplasty and likely in 6m without surgery. Daughter and patient wants surgery. Decompress with NG. Will try to find surgeon in [place]. (2) Abdominal pain Qualifiers: Abdominal location: generalized Qualified Code(s): R10.84 - Generalized abdominal pain Is this a current diagnosis for this admission?: Yes (3) Vomiting Qualifiers: Vomiting type: cyclical vomiting Vomiting Intractability: non-intractable Nausea presence: with nausea Qualified Code(s): G43.A0 - Cyclical vomiting, not intractable Is this a current diagnosis for this admission?: Yes (4) Mixed hyperlipidemia Is this a current diagnosis for this admission?: Yes (5) Atrophy of thyroid Is this a current diagnosis for this admission?: Yes (6) Carotid artery syndrome Is this a current diagnosis for this admission?: Yes (7) Alzheimer's disease with late onset Qualifiers: Dementia behavioral disturbance: without behavioral disturbance Qualified Code(s): G30.1 - Alzheimer's disease with late onset; F02.80 - Dementia in other diseases classified elsewhere without behavioral disturbance; F02.80 - Dementia in other diseases classified elsewhere without behavioral disturbance; F02.80 - Dementia in other diseases classified elsewhere without behavioral disturbance Is this a current diagnosis for this admission?: Yes (8) Allergic rhinitis due to pollen Qualifiers: Allergic rhinitis seasonality: seasonal Qualified Code(s): J30.1 - Allergic rhinitis due to pollen Is this a current diagnosis for this admission?: Yes (9) Panlobular emphysema Is this a current diagnosis for this admission?: Yes (10) Essential (primary) hypertension Is this a current diagnosis for this admission?: Yes (12) B12 deficiency Is this a current diagnosis for this admission?: Yes (13) Gastro-esophageal reflux disease without esophagitis Is this a current diagnosis for this admission?: Yes (14) Lumbosacral stenosis Is this a current diagnosis for this admission?: Yes (15) Postural kyphosis, thoracolumbar region Is this a current diagnosis for this admission?: Yes - Inpatient Certification Medical Necessity: Failure to Improve With Outpatient Therapy, Significant Comorbidiites Make Outpatient Treatment Too Risky, Need Close Monitoring Due to Risk of Patient Decompensation, Need For IV Fluids, Need For Continuous Telemetry Monitoring, Need for Pain Control, Need for Surgery, Risk of Complication if Not Cared For in Hospital, Risk of Diagnosis Which Will Require Inpatient Eval/Care/Monitoring
--- NOTE | 2018-05-22 08:37 | RADIOLOGY REPORT (SQ) ---
EXAM DESCRIPTION: CHEST SINGLE VIEW COMPLETED DATE/TIME: 05/21/2018 9:28 pm REASON FOR STUDY: possible aspiration COMPARISON: 04/11/2018 NUMBER OF VIEWS: One view. TECHNIQUE: Single frontal radiographic image of the chest acquired. LIMITATIONS: Positioning. FINDINGS: LUNGS AND PLEURA: Diffuse interstitial pattern with more confluent density right lower lob e. Blunting of the right costophrenic angle. MEDIASTINUM AND HEART: Stable heart size and mediastinal structures. SUPPORT DEVICES: Interval removal of nasogastric tube. BONY STRUCTURES: No acute findings. HARDWARE: None. OTHER: Mild gastric distention largely intrathoracic stomach. IMPRESSION: 1. Right lower lobe airspace disease consistent with infection or aspiration. 2. Mild gastric distention within large hiatal hernia. Reading location - IP/workstation name: [email or web address]
[2018-05-22] MEDS: ENOXAPARIN SODIUM INJ 30 MG/0.3 ML DISP.SYRIN SUBCUT SCH (09:16)
[2018-05-22] MEDS: METOCLOPRAMIDE HCL INJ/PF 10 MG/2 ML SDV IV SCH (09:16)
[2018-05-22] MEDS: ALBUTEROL SULFATE HFA (90 MCG/PUFF) 200 PUFF/8.5 GM MDI IH SCH (09:16)
--- NOTE | 2018-05-22 09:21 | PDOC TRANSFER SUMMARY ---
General Admission Date/PCP: 05/22/18 08:09 MARA SPENCE MD Admission Date: 05/20/18 Transfer Date: 05/22/18 Accepting Facility: [facility] Resuscitation Status: Full Code - Transfer Diagnosis (1) Hiatal hernia Is this a current diagnosis for this admission?: Yes (2) Abdominal pain Is this a current diagnosis for this admission?: Yes (3) Vomiting Is this a current diagnosis for this admission?: Yes (4) Mixed hyperlipidemia Is this a current diagnosis for this admission?: Yes (5) Atrophy of thyroid Is this a current diagnosis for this admission?: Yes (6) Carotid artery syndrome Is this a current diagnosis for this admission?: Yes (7) Alzheimer's disease with late onset Is this a current diagnosis for this admission?: Yes (8) Allergic rhinitis due to pollen Is this a current diagnosis for this admission?: Yes (9) Panlobular emphysema Is this a current diagnosis for this admission?: Yes (10) Essential (primary) hypertension Is this a current diagnosis for this admission?: Yes (12) B12 deficiency Is this a current diagnosis for this admission?: Yes (13) Gastro-esophageal reflux disease without esophagitis Is this a current diagnosis for this admission?: Yes (14) Lumbosacral stenosis Is this a current diagnosis for this admission?: Yes (15) Postural kyphosis, thoracolumbar region Is this a current diagnosis for this admission?: Yes - Transfer Medications Home Medications: Albuterol Sulfate [Proair HFA Inhalation Aerosol 8.5 gm MDI] 2 puff IH QIDP PRN 05/20/18 Losartan Potassium [Cozaar 50 mg Tablet] 50 mg PO DAILY 05/20/18 Lovastatin [Altoprev] 20 mg PO QHS 05/20/18 Transfer Medications: Current Medications Albuterol (Proair Hfa Inhalation Aerosol 8.5 Gm Mdi) 1 puff IH QID DANIA Stop: 06/19/18 09:59 Last Admin: 05/21/18 22:16 Dose: 1 puff Buspirone HCl (Buspar 10 Mg Tablet) 10 mg PO Q8 [facility] Stop: 06/20/18 13:59 Last Admin: 05/22/18 06:18 Dose: 10 mg Dextrose (Dextrose Inj 50% Syringe (25 Gm/50 Ml)) 12.5 gm IV PRN PRN; Protocol PRN Reason: FOR BG 50-69 IN ALERT PATIENT Stop: 06/19/18 07:48 Dextrose (Dextrose Inj 50% Syringe (25 Gm/50 Ml)) 25 gm IV PRN PRN; Protocol PRN Reason: See Label Comments Stop: 06/19/18 07:48 Enoxaparin Sodium (Lovenox Inj 30 Mg/0.3 Ml Disp.Syrin) 30 mg SUBCUT DAILY DANIA Stop: 06/19/18 09:59 Last Admin: 05/21/18 09:56 Dose: 30 mg Glucagon (Glucagen Inj 1 Mg Vial) 1 mg SUBCUT PRN PRN; Protocol PRN Reason: Evaluate for BG < 70 Stop: 06/19/18 07:48 Glucose (Glutose 40% Gel 15 Gm Tube) 15 gm PO PRN PRN; Protocol PRN Reason: For BG 50-69 in Alert Patient Stop: 06/19/18 07:48 Glucose (Glutose 40% Gel 15 Gm Tube) 30 gm PO PRN PRN; Protocol PRN Reason: FOR BG < 50 IN ALERT PATIENT Stop: 06/19/18 07:48 Hydralazine HCl (Apresoline Inj/Pf 20 Mg/1 Ml Sdv) 10 mg IV Q8HP PRN PRN Reason: SBP ABOVE 160 Stop: 06/19/18 17:37 Last Admin: 05/21/18 20:53 Dose: 10 mg Morphine Sulfate (Morphine [employer] 60 Mg/60 Ml Premix Vial) 60 mg in 60 mls @ 0 mls /hr IV ASDIR PRN; Protocol; Per Protocol PRN Reason: THIS MED IS NOT "PRN" Stop: 05/27/18 11:06 Last Admin: 05/20/18 12:45 Dose: 3 mls/hr, 3 mls/hr Dextrose/Sodium Chloride (D5-1/4ns 1000 Ml Iv Solution) 1,000 mls @ 125 mls/hr IV CONTINUOUS PRN PRN Reason: THIS MED IS NOT "PRN" Stop: 06/20/18 14:15 Last Infusion: 05/22/18 01:39 Dose: 80 mls/hr Lansoprazole (Prevacid 30 Mg Odt Tablet) 30 mg PO Q6AM DANIA Stop: 06/19/18 07:59 Last Admin: 05/22/18 06:18 Dose: 30 mg Metoclopramide HCl (Reglan Inj/Pf 10 Mg/2 Ml Sdv) 5 mg IV ACHS DANIA Stop: 06/19/18 07:59 Last Admin: 05/21/18 22:12 Dose: 5 mg Ondansetron HCl (Zofran Inj/Pf 4 Mg/2 Ml Sdv) 4 mg IV Q4HP PRN PRN Reason: FOR NAUSEA/VOMITING Stop: 06/19/18 07:48 Oxycodone HCl (Oxy-Ir 5 Mg Tablet) 5 mg PO Q8HP PRN PRN Reason: FOR PAIN Stop: 05/28/18 08:27 Last Admin: 05/21/18 12:51 Dose: 5 mg Promethazine HCl (Phenergan 25 Mg Supp.Rect) 25 mg GA Q4HP PRN PRN Reason: FOR NAUSEA/VOMITING Stop: 06/19/18 07:48 Last Admin: 05/21/18 19:42 Dose: 25 mg - Allergies Allergies/Adverse Reactions: propoxyphene HCl [From Darvon] Allergy (Mild, Verified 09/10/17 17:58) FELT FUNNY - Diet/Activity Discharge Diet: Other (Comments) - npo Discharge Activity: Bedrest Hospital Course Hospital Course: yesterday felt better after a day of morphine manager zone 1mg/h but today is spitting and dyspneic again. Daughter wants to [facility]imenez on fundoplasty in [facility] rather than go home on hospice. Physical Exam Vital Signs: Temp Pulse Resp BP Pulse Ox 98.7 F 105 H 21 H 153/82 H 100 05/21/18 20:19 05/21/18 23:30 05/21/18 23:30 05/21/18 23:30 05/21/18 23:30 General appearance: PRESENT: mild distress Respiratory exam: PRESENT: clear to auscultation nathan Cardiovascular exam: ABSENT: diastolic murmur, irregular rhythm, systolic murmur GI/Abdominal exam: ABSENT: mass, organolmegaly, tenderness Extremities exam: ABSENT: pedal edema Neurological exam: PRESENT: oriented to situation Psychiatric exam: PRESENT: appropriate affect Results Laboratory Results: Labs- Last Values WBC 8.0 10^3/uL (4.0-10.5) 05/20/18 02:15 RBC 4.03 10^6/uL (3.72-5.28) 05/20/18 02:15 Hgb 12.9 g/dL (12.0-15.5) 05/20/18 02:15 Hct 38.2 % (36.0-47.0) 05/20/18 02:15 MCV 95 fl (80-97) 05/20/18 02:15 MCH 31.9 pg (27.0-33.4) 05/20/18 02:15 MCHC 33.7 g/dL (32.0-36.0) 05/20/18 02:15 RDW 13.3 % (11.5-14.0) 05/20/18 02:15 Plt Count 201 10^3/uL (150-450) 05/20/18 02:15 Seg Neutrophils % 81.7 % (42-78) H 05/20/18 02:15 Lymphocytes % 12.5 % (13-45) L 05/20/18 02:15 Monocytes % 5.0 % (3-13) 05/20/18 02:15 Eosinophils % 0.5 % (0-6) 05/20/18 02:15 Basophils % 0.3 % (0-2) 05/20/18 02:15 Absolute Neutrophils 6.5 10^3/uL (1.7-8.2) 05/20/18 02:15 Absolute Lymphocytes 1.0 10^3/uL (0.5-4.7) 05/20/18 02:15 Absolute Monocytes 0.4 10^3/uL (0.1-1.4) 05/20/18 02:15 Absolute Eosinophils 0.0 10^3/uL (0.0-0.6) 05/20/18 02:15 Absolute Basophils 0.0 10^3/uL (0.0-0.2) 05/20/18 02:15 Sodium 143.9 mmol/L (137-145) 05/20/18 02:15 Potassium 4.3 mmol/L (3.6-5.0) 05/20/18 02:15 Chloride 105 mmol/L (98-107) 05/20/18 02:15 Carbon Dioxide 29 mmol/L (22-30) 05/20/18 02:15 Anion Gap 10 (5-19) 05/20/18 02:15 BUN 17 mg/dL (7-20) 05/20/18 02:15 Creatinine 0.81 mg/dL (0.52-1.25) 05/20/18 02:15 Est GFR ( Amer) > 60 (>60) 05/20/18 02:15 Est GFR (Non-Af Amer) > 60 (>60) 05/20/18 02:15 Glucose 143 mg/dL (75-110) H 05/20/18 02:15 Calcium 9.4 mg/dL (8.4-10.2) 05/20/18 02:15 Total Bilirubin 0.6 mg/dL (0.2-1.3) 05/20/18 02:15 Direct Bilirubin 0.3 mg/dL (0.0-0.4) 05/20/18 02:15 Neonat Total Bilirubin Not Reportable 05/20/18 02:15 Neonat Direct Bilirubin Not Reportable 05/20/18 02:15 Neonat Indirect Bili Not Reportable 05/20/18 02:15 AST 27 U/L (14-36) 05/20/18 02:15 ALT 25 U/L (9-52) 05/20/18 02:15 Alkaline Phosphatase 71 U/L (38-126) 05/20/18 02:15 Troponin I < 0.012 ng/mL 05/20/18 12:13 Total Protein 7.1 g/dL (6.3-8.2) 05/20/18 02:15 Albumin 4.1 g/dL (3.5-5.0) 05/20/18 02:15 Lipase 119.0 U/L (23-300) 05/20/18 02:15 Urine Color YELLOW 05/20/18 02:26 Urine Appearance SLIGHTLY-CLOUDY 05/20/18 02:26 Urine pH 5.0 (5.0-9.0) 05/20/18 02:26 Ur Specific [place] 1.019 05/20/18 02:26 Urine Protein NEGATIVE mg/dL (NEGATIVE) 05/20/18 02:26 Urine Glucose (UA) NEGATIVE mg/dL (NEGATIVE) 05/20/18 02:26 Urine Ketones NEGATIVE mg/dL (NEGATIVE) 05/20/18 02:26 Urine Blood NEGATIVE (NEGATIVE) 05/20/18 02:26 Urine Nitrite NEGATIVE (NEGATIVE) 05/20/18 02:26 Urine Bilirubin NEGATIVE (NEGATIVE) 05/20/18 02:26 Urine Urobilinogen NEGATIVE mg/dL (<2.0) 05/20/18 02:26 Ur Leukocyte Esterase TRACE (NEGATIVE) H 05/20/18 02:26 Urine WBC (Auto) 2 /HPF 05/20/18 02:26 Urine RBC (Auto) 4 /HPF 05/20/18 02:26 U Hyaline Cast (Auto) 4 /LPF 05/20/18 02:26 Squamous Epi Cells Auto <1 /HPF 05/20/18 02:26 Urine Mucus (Auto) OCC /LPF 05/20/18 02:26 Urine Ascorbic Acid 40 (NEGATIVE) H 05/20/18 02:26 Impressions: Acute Abdomen Series 05/20/18 01:52 IMPRESSION: No acute findings. 19 cm hiatal hernia. Chest X-Ray 05/21/18 20:28 IMPRESSION: 1. Right lower lobe airspace disease consistent with infection or aspiration. 2. Mild gastric distention within large hiatal hernia. Plan Discharge Plan: to Dr Sehn [facility] general surgery.
[2018-05-22] MEDS ORDERED: PHARMACY COMMUNICATION ORDER MC NR (11:00)
[2018-05-22] MEDS ORDERED: OXYCODONE HCL IR 5 MG TABLET NG PRN (11:30)
--- NOTE | 2018-05-22 13:04 | RADIOLOGY REPORT (SQ) ---
EXAM DESCRIPTION: KUB/ABDOMEN (SINGLE VIEW) COMPLETED DATE/TIME: 05/22/2018 11:32 am REASON FOR STUDY: Check Placement of NG Tube COMPARISON: 04/11/2018 NUMBER OF VIEWS: One view. TECHNIQUE: Upright portable radiographic image of the abdomen acquired. LIMITATIONS: None. FINDINGS: Nasogastric tube coiled within intrathoracic stomach. Mild gastric distention and dilated loops of small bowel to left of midline. IMPRESSION: Nasogastric tube within intrathoracic stomach. Reading location - IP/workstation name: [facility]
[2018-05-22] MEDS ORDERED: BUSPIRONE HCL 10 MG TABLET NG SCH (14:00)
[2018-05-22 16:21] VITALS: BP 137/81
[2018-05-23] MEDS ORDERED: LANSOPRAZOLE 30 MG TAB.RAP.DR NG SCH (06:00)
--- NOTE | 2018-05-25 10:35 | DISCHARGE SUMMARY E ---
Discharge Summary NAME: HERMELINDA SALAS : 1930 AGE: 88Y ADMITTED: 05/22/2018 DISCHARGED: 05/22/2018 DATE OF SERVICE: 05/24/2018 ADDENDUM [facility] asked me to target the most likely cause of her abdominal pain. It was her intrathoracic huge hiatal hernia whose stomach nearly entirely pulled up into the chest. Not gastroenteritis, partial obstruction, constipation, etc. DICTATING PHYSICIAN: MARA SPENCE M.D. [id number] PHY#: [id number] ID: [id number] JOB#: [id number] ACCT: [id number] cc:MARA SPENCE M.D. >
== END 2018-05-22 17:00 | disposition short-term general hospital (02) | DRG 392 ==
LOC: ER 01:27 → EH 05:14 → 4N 06:48 → OBSVTOIN 05-22 08:09
PROVIDERS: ADMIT Family Medicine; ATTEND Family Medicine
PROC: 0D9670Z Drainage of Stomach with Drainage Device, Via Natural or Artificial Opening (ICD-10-PCS; principal; 2018-05-22)
DX: K44.9 Diaphragmatic hernia without obstruction or gangrene (principal); G45.1 Carotid artery syndrome (hemispheric); M41.9 Scoliosis, unspecified; E78.5 Hyperlipidemia, unspecified; I10 Essential (primary) hypertension; E03.9 Hypothyroidism, unspecified; K21.9 Gastro-esophageal reflux disease without esophagitis; M19.90 Unspecified osteoarthritis, unspecified site; Z90.49 Acquired absence of other specified parts of digestive tract; G43.A0 Cyclical vomiting, in migraine, not intractable; G30.1 Alzheimer's disease with late onset; F02.80 Dementia in other diseases classified elsewhere, unspecified severity, without behavioral disturbance, psychotic disturbance, mood disturbance, and anxiety; J30.1 Allergic rhinitis due to pollen; J43.1 Panlobular emphysema; M48.07 Spinal stenosis, lumbosacral region; E53.8 Deficiency of other specified B group vitamins; E03.4 Atrophy of thyroid (acquired)
CPT/HCPCS: 36415; 71045; 74018; 74022; 80053; 81001; 83690; 84484; 85025; 93005; 93010; 96374; 96375; 96376; 99285; G0378; G8996-GN; G8997-GN; G8998-GN; J0360; J1650; J2270; J2405; J2765; J3490; S0164